=== PATIENT | female | born 1960 | race African-American/Black ===

== ENCOUNTER 2022-01-06 14:40 | Outpatient (CLI) | payer OTHER, SELFPAY ==
--- NOTE | ~2022-01-06 | MM_ITS ---
EXAMINATION: MM screening mark BI w brianda HISTORY: Screening TECHNIQUE: Craniocaudal and mediolateral oblique 3-D tomosynthesis images were obtained and synthetic 2-D images were generated. CAD analysis was submitted and interpreted. COMPARISON: Comparison to multiple prior studies sequentially, with oldest reviewed study dated 06/28. BREAST PARENCHYMAL COMPOSITION: Breast composed of scattered areas of fibroglandular density FINDINGS: There are developing clusters of breast calcifications in the upper outer and upper central right breast posteriorly and the lower inner quadrant of the left breast as well as the upper aspect of the left breast on MLO view. IMPRESSION: 1. Developing bilateral clusters of breast calcifications. 2. Additional mammographic views including left exaggerated CC view and possible breast ultrasound ar e recommended. BI-RADS CATEGORY 0 - INCOMPLETE STUDY, NEED ADDITIONAL IMAGING EVALUATION. Reviewed, dictated and finalized at location A. IMPRESSION: 1. Developing bilateral clusters of breast calcifications. 2. Additional mammographic views including left exaggerated CC view and possibl e breast ultrasound are recommended. BI-RADS CATEGORY 0 - INCOMPLETE STUDY, NEED ADDITIONAL IMAGING EVALUATION.
== END 2022-01-06 14:41 | disposition home or self-care (01) ==
LOC: ANHIMG 14:43
DX: Z12.31 Encounter for screening mammogram for malignant neoplasm of breast (principal); R92.8 Other abnormal and inconclusive findings on diagnostic imaging of breast
CPT/HCPCS: 77063; 77067

== ENCOUNTER 2022-10-19 12:58 | Outpatient (CLI) | payer MEDICARE, SELFPAY ==
--- NOTE | ~2022-10-19 | US_ITS ---
EXAMINATION: US renal BI DATE: 10/19/2022 13:51 INDICATION: Chronic kidney disease TECHNIQUE: Multiple grayscale and Doppler ultrasound images of the kidneys were obtained. COMPARISON: None. FINDINGS: The right kidney measures 9.8 x 4.6 x 5.1 cm. The left kidney measures 10.4 x 6.3 x 7.1 cm. The kidneys demonstrate increased parenchymal echogenicity. There is no hydronephrosis. The bladder is incompletely distended but demonstrates mild wall thickening. IMPRESSION: 1. Medical renal disease. 2. Mild wall thickening of the urinary bladder which could reflect incomplete distention versus cysti tis. Reviewed, dictated and finalized at location L. [employer]ICATION[employer] IMPRESSION: 1. Medical renal disease. 2. Mild wall thickening of the urinary bladder which could reflect incomplete d istention versus cystitis.
== END 2022-10-19 12:59 | disposition home or self-care (01) ==
PROVIDERS: Visit Provider Internal Medicine Nephrology
DX: N18.9 Chronic kidney disease, unspecified (principal); R93.41 Abnormal radiologic findings on diagnostic imaging of renal pelvis, ureter, or bladder
CPT/HCPCS: 76775

== ENCOUNTER 2025-01-29 02:27 | Day surgery (SDC) | payer MEDICARE, SELFPAY ==
[2025-01-20 13:01] VITALS: BMI 27.3
--- OUTSIDE RECORDS SUMMARY | 2025-01-29 02:30 | XMS_ITS | Clinical Summary ---
Author Organization [facility] [address] [place] [address] Care Team Providers Care Overcaster Name Role Phone Reid Brown MD Unavailable [phone] Refugio Bullock MD Unavailable [phone] Robel Krueger MD Primary Care Provider [phone] Allergies No known active allergies Medications loratadine (CLARITIN) 10 mg tablet Take 1 tablet (10 mg total) by mouth daily as needed for allergies Active pen needle, diabetic 31 gauge x 5/16 needle Use to inject once a week as directed. 30 each 05/24/20 22 Active atenoloL (TENORMIN) 50 mg tablet Take 1 tablet by mouth once daily 90 tablet 04/03/20 23 Active losartan (COZAAR) 50 mg tablet Take 1 tablet (50 mg total) by mouth daily Active glimepiride (AMARYL) 4 mg tablet TAKE 1 TABLET BY MOUTH TWICE DAILY WITH MEALS 180 tablet 3 05/05/20 24 Active linaGLIPtin (Tradjenta) 5 mg tablet Take 1 tablet by mouth once daily 90 tablet 3 05/05/20 24 Active cyanocobalamin, vitamin B-12, (VITAMIN B-12 ORAL) Take by mouth Active dapagliflozin propanediol (Farxiga) 5 mg tabletIndicatio ns:Chronic Kidney Disease,type 2 diabetes mellitus Take 1 tablet (5 mg total) by mouth daily 30 tablet 3 11/15/19 25 Active atorvastatin (LIPITOR) 40 mg tablet Take 1 tablet by mouth once daily 90 tablet 3 12/09/19 Active dulaglutide (Trulicity) 4.5 mg/0.5 mL pen injectorIndicat ions:Dyslipidem ia associated with type 2 diabetes mellitus (HCC) INJECT 4.5 MG SUBCUTANEOUSLY ONCE A WEEK 4 mL 3 12/09/19 25 Active Active Problems Problem Noted Date Diagnosed Date Establishing care with new doctor, encounter for 04/01/2024 Assessment & Plan (04/01/2024 2:45 PM CDT): A(n) initial vist to establish care has been performed today. Karolyn Pandya is not up to date on screening tests. She is in need of Breast cancer screening, hep B, Colon cancer screening, Cholesterol screening, and Cervical cancer screening. She is not up to date on needed preventative vaccinations; She is in need of Zoster. We discussed healthy lifestyle habits, educational material has been given. Medications reviewed, changes documented as per the medical record and discussed with patient along with risks vs benefits. Return in 6 months Hypertension associated with type 2 diabetes sanaz litus 08/28/2023 Hypertensive renal disease 08/28/2022 Type II or unspecified type diabetes mellitus with renal manifestations, uncontrolled(250.42) 08/28/2022 Encounter for Medicare annual wellness exam 05/08 Assessment & Plan (05/28/2022 9:44 PM CDT): Health Maintenance Topics with due status: Overdue Topic Date Due Cervical Cancer Screening-Pap and HPV Never done Colon Cancer Screening-Colonoscopy Never done Zoster Vaccines Never done Dilated Eye Exam 12/20/2021 Covid-19 Vaccine 12/22/2021 Health Maintenance Topics with due status: Not Due Topic Last Completion Date DTaP/Tdap/Td Vaccine 12/20/2017 Influenza Vaccine 08/24/2021 Breast Cancer Screening-Mammogram 01/06/2022 Lipid Panel 04/18/2022 Hemoglobin A1C 04/18/2022 Urine Microalbumin 04/18/2022 Depression Screening-PHQ 05/24/2022 Regular Well Visit/Exam 18-64 05/24/2022 Foot Exam 05/24/2022 Health Maintenance Topics with due status: Completed Topic Last Completion Date Hepatitis C Screening 04/14/2020 Pneumococcal vaccine <65 05/24/2022 Medications were reviewed. Patient will sign a consent so we can get the records for her eye exam. Fall precautions discussed with patient. Patient states she will make an appointment to see the GI specialist close to home for her colonoscopy. Elevated liver function tests 05/24/2022 Assessment & Plan (05/28/2022 9:43 PM CDT): Patient's LFTs were also elevated. Will recheck them. Anemia 04/29/2019 Assessment & Plan (12/25/2021 11:41 AM CDT): Will continue to monitor. Assessment & Plan (01/21/2021 12:17 PM CDT): Patient has not had colon cancer screening. H&H has been well controlled. Patient also does have chronic kidney disease. Patient states she is waiting till she is able to go on Medicare which will be in March of this year to make appointments to see specialist. Assessment & Plan (06/09/2020 12:54 PM CDT): Labs were discussed with patient. Patient was advised to restart on iron tablet 1 a day. Assessment & Plan (11/10/2019 3:15 PM ASSISTANT PROFESSOR): At the present time patient has not been taking any iron pills. Will continue to monitor Assessment & Plan (04/29/2019 12:33 PM CDT): Will recheck her labs. At the present time patient is not taking iron tablets. Patient has been taking B12 is she is on metformin. Colon cancer screening 01/08/2019 Assessment & Plan (12/31/2022 11:41 PM CDT): Patient states she will make appointment to see GI for colonoscopy. Assessment & Plan (06/06/2021 12:36 PM CDT): Patient states she is planning to get the colonoscopy as soon as she gets her insurance straightened out. Assessment & Plan (06/09/2020 12:53 PM CDT): Patient was agreeable to have Cologuard test done. Patient states she does have the test kit at home and will send that in. Assessment & Plan (11/10/2019 3:14 PM ASSISTANT PROFESSOR): Patient states she did do her Cologuard and sent it in recently Assessment & Plan (04/29/2019 12:31 PM CDT): Patient does not want to have colonoscopy. Discussed with patient she does have anemia and I would strongly advise her to get a colonoscopy and possible EGD. Patient states she will have the think about it. Caloguard test was reordered for her . Advised patient if she does not get the kit in the mail in 2 weeks to call Assessment & Plan (01/08/2019 3:12 PM CDT): Colon cancer screening was discussed with patient. Patient does not want to have colonoscopy. States there is no family history of colon cancer. Patient is agreeable to have the Cologuard test done. Order was sent Vitamin D deficiency 01/08/2019 Assessment & Plan (12/31/2022 11:40 PM CDT): At the present time patient is not taking any vitamin-D. Will continue to monitor. Assessment & Plan (05/28/2022 9:41 PM CDT): She will continue with the same dose of vitamin D3. Assessment & Plan (12/25/2021 11:41 AM CDT): At the present time not taking any vitamin D. Will continue to monitor her labs. Assessment & Plan (06/06/2021 12:36 PM CDT): Will check her vitamin-D levels with the blood work. Assessment & Plan (01/21/2021 12:16 PM CDT): Patient at the present time has been taking vitamin D3 2000 units a day. Was advised to increase that to 5000 units a day. Assessment & Plan (10/03/2020 5:50 PM ASSISTANT PROFESSOR): Patient has been taking vitamin D 50,000 once a week. Will continue to monitor Assessment & Plan (06/09/2020 12:53 PM CDT): Patient's vitamin-D levels were high. Was advised to stop taking her vitamin D 50,000 once a week for now. Will continue to monitor. Assessment & Plan (11/10/2019 3:15 PM ASSISTANT PROFESSOR): Patient has been taking vitamin D 79615 units once a week. Assessment & Plan (04/29/2019 12:32 PM CDT): Patient has been taking vitamin D 37872 IU use once a week. With her next blood work will also check her vitamin-D levels. Assessment & Plan (01/08/2019 3:13 PM CDT): Patient's blood work does show her vitamin-D level was very low. Was given prescription to take vitamin D 70644 units once a week. Will recheck it in few months. 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 Patient also did not send in the Cologuard testing. Patient states that the present time she does not want to do any testing. Assessment & Plan (06/09/2020 12:52 PM CDT): Patient does not want to have colonoscopy done. Patient does have iron deficiency anemia. Patient is aware if she has colon polyps it can turn into cancer. Next Assessment & Plan (12/20/2017 5:55 PM CDT): Colon cancer screening was discussed with patient. Patient does not want to have the colonoscopy done. Patient did have guaiac test done in April of 2017. Patient states she will consider getting that done again after April. Stage 3b chronic kidney disease 08/28/2017 Assessment & Plan (12/31/2022 11:41 PM CDT): Blood pressure was well controlled. At the present time continue with the same medications Assessment & Plan (05/28/2022 9:41 PM CDT): Blood pressure was well controlled. At the present time continue with the same medications. Assessment & Plan (12/25/2021 11:40 AM CDT): Patient's blood pressure has been well controlled. At the present time she has been taking Tenormin 50 mg daily. And Diovan 80 mg daily. She will continue with the same dose. Assessment & Plan (06/06/2021 12:37 PM CDT): Patient's blood pressure has been well controlled. At the present time she has been taking Tenormin 50 mg daily. And Diovan 80 mg on a daily basis. Continue with the same. Assessment & Plan (01/21/2021 12:16 PM CDT): Blood pressure has been well controlled. At the present time patient has been taking Tenormin 50 mg 1 daily. Taking Diovan 80 mg on a daily basis. At the present time she will continue with the same. Assessment & Plan (10/03/2020 5:52 PM ASSISTANT PROFESSOR): Blood pressure has been well controlled. At the present time she has been taking Tenormin 50 mg daily. And Diovan 80 mg daily. She will continue with the same Assessment & Plan (06/09/2020 12:52 PM CDT): Blood pressure was well controlled. At the present time patient has been taking Tenormin 50 mg on a daily basis. Hydrochlorothiazide 12.5 mg daily. And Diovan 80 mg on a daily basis. She will continue with the same. Assessment & Plan (11/10/2019 3:14 PM ASSISTANT PROFESSOR): Blood pressure has been well controlled. At the present time patient has been taking Diovan 80 mg on a daily basis. Atenolol 50 mg on a daily basis and hydrochlorothiazide 12.5 mg daily. Assessment & Plan (04/29/2019 12:30 PM CDT): Patient's blood pressure has been well controlled. At the present time patient has been taking Hyzaar 100/12.5 mg 1 daily. She has also been taking Tenormin 50 mg on a daily basis. Patient will continue with the same. Assessment & Plan (01/08/2019 3:08 PM CDT): Patient's blood pressure has been well controlled. At the present time patient has been taking Hyzaar 100/12.5 mg 1 daily. She has also been taking at Tenormin 50 mg on a daily basis. Continue with the same dose. Assessment & Plan (11/15/2018 1:57 PM ASSISTANT PROFESSOR): Patient's blood pressure has been well controlled. At the present time patient has been taking Tenormin 50 mg 1 daily. Patient has also been taking Hyzaar 100/12.5 mg on a daily basis. She will continue with the same dosage. Assessment & Plan (09/18/2018 10:13 AM ASSISTANT PROFESSOR): Patient's blood pressure has been well controlled. At the present time she will continue with the same medications. Assessment & Plan (08/22/2018 1:59 PM ASSISTANT PROFESSOR): Patient's blood pressure has been well controlled. At the present time patient has been taking Hyzaar 100/12.5 mg daily and atenolol 50 mg once a day. Assessment & Plan (12/20/2017 5:56 PM CDT): Patient's blood pressure has been well controlled. At the present time she has been taking high Hyzaar 100/12.5 mg 1 daily. She has also been taking atenolol 50 mg 1 daily. At the present time she will continue with the same medications. Assessment & Plan (08/28/2017 6:17 PM ASSISTANT PROFESSOR): Patient's blood pressure has been controlled. At the present time she has been taking atenolol 50 mg 1 daily. she has also been on high Hyzaar 100/12.5 mg daily. She will continue with the same. 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 Assessment & Plan (05/28/2022 9:41 PM CDT): Patient states she has been using her eyedrops as prescribed. She is up-to-date on her eye exam. Assessment & Plan (12/25/2021 11:40 AM CDT): Patient states her vision has not changed. She is up-to-date on her eye exam. Patient will sign a consent so we can get the results. Assessment & Plan (01/21/2021 12:15 PM CDT): Patient does see her eye doctor on a regular basis. Assessment & Plan (06/21/2020 3:22 PM CDT): Has had extensive panretinal photocoagulation in the right eye, the right eye appears to have an attached retinal appearance. Prognosis for the right eye is quite guarded I recommend observation at this time. 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 We discussed possibility of silicone oil removal and repair retinal detachment but considering the poor vision and disorganized appearance I believe that the prognosis for this eye is quite poor. Considering this patient wishes for observation, I think this is quite reasonable, I have asked that she return to see us roughly 3 months time period should all remains stable will see her again in 6 month, and should remain stable at a six-month period will return her to Dr. Bullock's care. Assessment & Plan (06/09/2020 12:50 PM CDT): As per her net trainer and redness specialist. Next Assessment & Plan (11/10/2019 3:13 PM ASSISTANT PROFESSOR): Patient does see net trainer on a regular basis. States she has been using her eyedrops as prescribed. Assessment & Plan (08/22/2018 2:34 PM ASSISTANT PROFESSOR): States her vision is staying about the same. She does see net trainer on a regular basis. Has been using eyedrops. Assessment & Plan (08/28/2017 6:16 PM ASSISTANT PROFESSOR): Patient is up-to-date on her eye exam. She continues to use her eyedrops as prescribed. Assessment & Plan (05/15/2017 11:43 AM CDT): Patient states her vision has not been getting worse. She is up-to-date on her exam with the redness specialist. CKD (chronic kidney disease) stage 3, GFR 30-59 ml/min 05/15/2017 Assessment & Plan (12/31/2022 11:41 PM CDT): Medications were reviewed. Patient was advised to avoid all nonsteroidals. She does see bean sorter now. Assessment & Plan (05/28/2022 9:41 PM CDT): Discussed with patient her kidney test have been progressively been getting worse. Patient has metformin was discontinued. Was advised to make the appointment to see the bean sorter. Also advised patient to avoid all nonsteroidals. Patient's Diovan was also discontinued. Assessment & Plan (12/25/2021 11:40 AM CDT): Advised patient to avoid all nonsteroidals. Discussed with patient she also does need to have an appointment to follow-up with a bean sorter. Assessment & Plan (06/06/2021 12:36 PM CDT): Medications were reviewed. Patient was advised to avoid all nonsteroidals. Will continue to monitor Assessment & Plan (01/21/2021 12:15 PM CDT): Medications were reviewed. Patient was advised to avoid all nonsteroidals. Also discussed with patient that she does need to be seen by bean sorter. Patient states that the present time she wants to wait till March when she changes her insurance. Assessment & Plan (10/03/2020 5:51 PM ASSISTANT PROFESSOR): Medications were reviewed. Patient was advised to avoid all nonsteroidals. Will continue to monitor. Assessment & Plan (06/09/2020 12:51 PM CDT): Labs were discussed with patient. Patient's medications were reviewed. At the present time patient is not taking any nonsteroidals. Patient's creatinine was elevated at 1.74 this time. Will continue to monitor. Patient is on Diovan and hydrochlorothiazide. If her creatinine continues to be high will need to stop the hydrochlorothiazide at least and also change her metformin. Patient at the present time does not want to see bean sorter. Assessment & Plan (11/10/2019 3:13 PM ASSISTANT PROFESSOR): Medications were reviewed. Patient was advised to avoid all nonsteroidals. Will continue to monitor Assessment & Plan (04/29/2019 12:30 PM CDT): Patient's medications were reviewed. Avoid nephrotoxins. Will continue to monitor. Assessment & Plan (01/08/2019 3:09 PM CDT): Patient's recent lab work was discussed with her. Will continue to monitor. Patient was advised to avoid all nonsteroidals. Assessment & Plan (11/15/2018 1:56 PM ASSISTANT PROFESSOR): Will continue to monitor. Patient will avoid nonsteroidals. Assessment & Plan (09/18/2018 10:13 AM ASSISTANT PROFESSOR): Continue to monitor Assessment & Plan (08/22/2018 1:58 PM ASSISTANT PROFESSOR): Patient not taking any nonsteroidals. Does not have any symptoms. Will continue to monitor. Assessment & Plan (12/20/2017 5:56 PM CDT): Will continue to monitor. Patient was given lab slip to have blood work in urine test in the next couple of weeks. Assessment & Plan (08/28/2017 6:16 PM ASSISTANT PROFESSOR): Patient's creatinine was 1.39 this time. GFR was 49. Will continue to monitor. Patient was also advised to avoid all nonsteroidals. Assessment & Plan (05/15/2017 11:41 AM CDT): Patient's blood pressure has been well controlled. At the present time patient has been taking atenolol 50 mg 1 daily. Patient has also been taking high Hyzaar 100/12.5 mg 1 daily. She will continue with the same.. Advanced diabetic retinal disease 04/08/2014 Overview (01/11/2017): Advanced diabetic retinal disease Assessment & Plan (06/06/2021 12:35 PM CDT): As per Retina specialist. Assessment & Plan (10/03/2020 5:50 PM ASSISTANT PROFESSOR): As per her eye doctor's. She has been using her eyedrops as prescribed Assessment & Plan (06/09/2020 12:50 PM CDT): As per her net trainer in the redness specialist. Assessment & Plan (04/29/2019 12:29 PM CDT): Patient has been using her eyedrops and is up-to-date on her eye exam. Glaucoma associated with vascular disorders 11/2013 Overview (01/11/2017): Glaucoma associated with vascular disorder Assessment & Plan (12/31/2022 11:40 PM CDT): States she is up-to-date on her eye exam. Using her eyedrops as prescribed. Assessment & Plan (05/28/2022 9:42 PM CDT): As per her net trainer. Patient states she has been using her eyedrops as prescribed Assessment & Plan (12/25/2021 11:42 AM CDT): As per net trainer. Patient states she has been using her eyedrops as prescribed. Assessment & Plan (06/06/2021 12:35 PM CDT): Patient has been using her eyedrops. Does see her eye doctor on a regular basis Assessment & Plan (06/09/2020 12:50 PM CDT): As per her net trainer. Type 2 diabetes mellitus wit h hyperglycemia, without long-term current use of insulin 07/29/2013 Overview (01/11/2017): HYPERLIPIDEMIA NEC/NOS Assessment & Plan (12/31/2022 11:40 PM CDT): Patient will continue with atorvastatin 40 mg at bedtime. Next Assessment & Plan (05/28/2022 9:42 PM CDT): Patient has been taking Lipitor 40 mg and has been able to tolerate that. She will continue with the same dose Assessment & Plan (12/25/2021 11:41 AM CDT): Patient states she has been taking Lipitor 40 mg daily and has been able to tolerate that. She will continue with the same Assessment & Plan (06/06/2021 12:35 PM CDT): Patient has been taking Lipitor 40 mg on a daily basis and has been able to tolerate that. Assessment & Plan (01/21/2021 12:15 PM CDT): Labs were discussed with patient. Patient's lipids are not at goal. Patient states she had been out of her Lipitor for couple months. She has restarted taking the Lipitor 40 mg daily since her last blood draw. Patient was advised to continue with the same. Advised patient if she is out of refills to give us a call. Will recheck her labs with her next appointment Assessment & Plan (10/03/2020 5:50 PM ASSISTANT PROFESSOR): Patient has been taking Lipitor 40 mg on a daily basis and has been able to tolerate that. Assessment & Plan (06/09/2020 12:48 PM CDT): Patient's labs were discussed with her. Discussed with patient with her history of diabetes her LDL does need to be less than 70. Patient at the present time has been taking pravastatin. With her next refills we will change that to Lipitor 40 mg to take 1 at bedtime. Patient was advised to let me know when she needs the Lipitor. After starting the Lipitor if she has any problems to give us a call. Assessment & Plan (11/10/2019 3:11 PM ASSISTANT PROFESSOR): Patient has been taking pravastatin 80 mg at bedtime. Patient was given blood work sleep to have the fasting blood work in the next few days. Diet and exercise was encouraged. Assessment & Plan (04/29/2019 12:28 PM CDT): Patient was encouraged to get back on her diet. At the present time she has been taking pravastatin 80 mg on a daily basis and has been able to tolerate that. Patient was given lab slip to have fasting blood work and of next month. Assessment & Plan (01/08/2019 3:10 PM CDT): Labs discussed with patient. Patient has been taking pravastatin 80 mg daily. Patient will continue with the same dose. Assessment & Plan (11/15/2018 2:02 PM ASSISTANT PROFESSOR): Patient was encouraged to continue with her diet and exercise. At the present time patient has been taking pravastatin 80 mg on a daily basis. She will continue with the same dose. Assessment & Plan (09/18/2018 10:15 AM ASSISTANT PROFESSOR): Diet and exercise was discussed with patient. At the present time she has been taking pravastatin 80 mg a day and has been able to tolerate that. Assessment & Plan (08/22/2018 2:00 PM ASSISTANT PROFESSOR): Advised to continue with diet and exercise. At the present time patient has been taking pravastatin 80 mg on a daily basis. Patient states she will have her fasting blood work done in the next few weeks. Assessment & Plan (12/20/2017 5:57 PM CDT): Diet and exercise was discussed with patient. Patient has been taking pravastatin 80 mg daily and she has been able to tolerate that. Patient was given lab slip to have fasting blood work in the next couple of weeks. Will check her fasting lipids and CMP. Assessment & Plan (08/28/2017 6:14 PM ASSISTANT PROFESSOR): Labs were discussed with patient. Her LDL was 72. At the present time patient will continue with her pravastatin 80 mg daily. Was also advised to continue with her diet and exercise. Assessment & Plan (05/15/2017 11:42 AM CDT): Patient's last LDL was 73. At the present time she has been taking pravastatin 80 mg daily. She will continue with the same. Patient will also have a fasting lipids and CMP with her next blood work. Diet and exercise Uterine leiomyoma 02/04/2013 Overview (01/11/2017): Uterine fibroid Assessment & Plan (01/08/2019 3:13 PM CDT): Patient does have mobile mass. Patient states it has not been bothering her and therefore does not feel she needs to see montessori preschool teacher at this time. Heart murmur 01/01/2013 Overview (01/10/2017): Heart murmur Assessment & Plan (08/22/2018 1:59 PM ASSISTANT PROFESSOR): Patient will be scheduled to have 2D echocardiogram to rule out valvular heart disease. Resolved Problems Problem Noted Date Diagnosed Date Resolved Date Breast cancer screening by mammogram 11/10/2019 05/24/2022 Assessment & Plan (12/25/2021 11:41 AM CDT): Does have appointment to have a mammogram in the next few weeks. Assessment & Plan (06/06/2021 12:36 PM CDT): Patient was given orders for the mammogram. Patient states she will get it close to her home. Assessment & Plan (01/21/2021 12:17 PM CDT): Patient wants to week till March to have the mammogram. Assessment & Plan (06/09/2020 12:55 PM CDT): Patient states she will make her own appointment for the mammogram. Assessment & Plan (11/10/2019 3:16 PM ASSISTANT PROFESSOR): Patient states she will make her own appointment for the mammogram. Refused influenza vaccine 11/10/2019 Assessment & Plan (11/10/2019 3:16 PM ASSISTANT PROFESSOR): Patient was offered flu shot and she declined. Next BMI 26.0-26.9,adult 04/29/2019 01/22/20 21 Assessment & Plan (06/09/2020 12:53 PM CDT): Diet exercise and weight loss was encouraged. Assessment & Plan (11/10/2019 3:15 PM ASSISTANT PROFESSOR): Patient was counseled on diet exercise. Assessment & Plan (04/29/2019 12:35 PM CDT): Patient was counseled on diet exercise and weight loss. Pre-op examination 11/15/2018 9 Assessment & Plan (11/15/2018 1:58 PM ASSISTANT PROFESSOR): Patient is scheduled to have surgery on her left eye next week. Patient's EKG was normal. Patient is cleared for surgery. Patient was advised to hold her diabetes medicine morning of the surgery. However she can take Tenormin 50 mg with a sip of water in the morning. Will make sure patient's labs are okay. Breast cancer screening 05/15/2017/2 10/2016 Assessment & Plan (05/15/2017 11:45 AM CDT): Patient will make appointment for the mammogram Type 2 diabetes mellitus wit h hyperlipidemia ([facility]) 02/04/2013 08/28/2023 Overview (01/11/2017): DMII WO CMP UNCNTRLD Assessment & Plan (12/31/2022 11:40 PM CDT): Patient's blood work was reviewed. Hemoglobin A1c was 8.8. Discussed with patient would like to see that under 7.0. At the present time patient has been taking Trulicity 1.5 mg once a week. Discussed with patient with her next refill I will change that to 3.0 mg once a week. She has been taking glimepiride 4 mg twice a day. Patient is also taking Tradjenta 5 mg on a daily basis. Patient's metformin was discontinued. Symptoms of hypoglycemia was discussed. Patient will sign a consent so we can get her eye exam. Assessment & Plan (05/28/2022 9:43 PM CDT): Patient's diabetes is not well controlled. Her hemoglobin A1c this time was 10.0. Patient has been taking Tradjenta 5 mg daily. Taking glimepiride 4 mg twice a day. Metformin was discontinued because of her elevated creatinine. Discussed with patient to start on Trulicity. Patient states she will try. Will continue to monitor. Assessment & Plan (12/25/2021 11:42 AM CDT): At the present time patient has been taking glimepiride 4 mg 1 tablet before breakfast and 1 before evening meal. She has also been taking metformin 500 mg 1 twice a day with food and has also been taking Jardiance 5 mg on a daily basis. Will continue to monitor her hemoglobin A1c. Assessment & Plan (06/06/2021 12:34 PM CDT): Patient has not been checking blood sugars at home. She has been taking her medications as prescribed. Patient states she will get her blood work done in the next few days. At the present time she has been taking glimepiride 2 mg 1 twice a day with food. Also taking Tradjenta 5 mg on a daily basis. Taking metformin 500 mg 1 twice a day with food. Assessment & Plan (01/21/2021 12:14 PM CDT): Patient has not been checking blood sugars at home. Patient states she has not been having any symptoms of hypoglycemia. Has been trying to watch her diet. Lab work was discussed with patient. Her hemoglobin A1c has improved. Patient at the present time has been taking Tradjenta 5 mg daily. Taking glimepiride 4 mg 1 twice a day. Taking metformin 500 mg 1 twice a day with food. Patient at the present time will continue with the same. Discussed with patient if her kidney test continues to get worse we will need to take her off the metformin. Assessment & Plan (10/03/2020 5:50 PM ASSISTANT PROFESSOR): Patient has not been checking blood sugars at home. States she has been trying to do better with her diet. At the present time patient has been taking metformin 500 mg 1 tablet twice a day with food. Taking glimepiride 2 mg twice a day with meals and has also been taking Tradjenta 5 mg on a daily basis. Patient will have blood work done in October including her hemoglobin A1c. Assessment & Plan (06/09/2020 12:52 PM CDT): Patient has not been able to check her blood sugars at home because of her vision issues. Patient states diet has not been good. Has not been exercising either. Patient's hemoglobin A1c was elevated at 8.4 today. Patient at the present time has been taking Glucophage 500 mg 2 tablets twice a day with food. She has also been taking glimepiride 2 mg 2 tablets twice a day with food. Discussed with patient would like to have her hemoglobin A1c to be less than 7.0. Tradjenta 5 mg 1 a day was added. Will check her labs again in 3 months. Assessment & Plan (11/10/2019 3:12 PM ASSISTANT PROFESSOR): Patient states she has not been checking blood sugars at home because of her vision problems. Patient states she cannot see enough to do the Accu-Chek. Has not had any symptoms of hypoglycemia. At the present time patient has been taking glimepiride 4 mg before breakfast and 4 mg before evening meals. Patient has also been taking metformin XR 500 mg 2 tablets twice a day. At the present time she will continue with the same dose. Will also check her hemoglobin A1c. Patient states she is up-to-date on her eye exam. Will have her sign a consent so I can get the notes on her eye exam. Assessment & Plan (04/29/2019 12:34 PM CDT): Patient states she cannot check her blood sugars because of her vision. Has not been having any symptoms of hypoglycemia. At the present time patient has been taking glimepiride 2 mg 1 tablet twice a day before breakfast any evening. She has also been taking metformin 500 mg 2 tablets twice a day with food. Patient has been able to tolerated. Assessment & Plan (01/08/2019 3:10 PM CDT): Patient's diabetes has improved. Her last hemoglobin A1c was 6.2. Diet and exercise was encouraged. At the present time patient has been taking glimepiride 2 mg 2 tablets twice a day before food. Also taking metformin XR 500 mg 2 tablets twice a day with food. Symptoms of hypoglycemia was discussed with her. Patient is up-to-date on her eye exam. Assessment & Plan (11/15/2018 1:56 PM ASSISTANT PROFESSOR): Patient states she has not been checking her blood sugars at home. Has not been able to see the numbers on the Accu-Chek machines. Patient has not had any hypoglycemic reactions. At the present time patient has been taking glimepiride 2 mg 2 tablets before breakfast and 2 before evening meal. Patient is also taking metformin XR 500 mg 2 tablets twice a day with food. At the present time patient will continue with the same dosage. Assessment & Plan (09/18/2018 10:14 AM ASSISTANT PROFESSOR): Patient states she has not been able to check her blood sugars at home because of her vision problem. She has been taking her medications as prescribed. Lab results were discussed with her. Her hemoglobin A1c with the last blood work was 9.0 which is much higher than the 1 before. Patient states she has been taking her medications but has not been watching her diet. Wants to try the diet 1st before adding any more medications. Assessment & Plan (08/22/2018 2:35 PM ASSISTANT PROFESSOR): Patient states she has been doing much better with her diet. Has been taking her medications as prescribed. Has not been able to check blood sugars at home because of her vision problems. Patient's last hemoglobin A1c was 9.0. Patient's diabetes is not well controlled. Patient states she did not get her blood work this time but we will have the blood work done in the next few weeks. Will wait for the results to see if we can adjust her medications if her diabetes is still out of control. Assessment & Plan (12/20/2017 5:59 PM CDT): Patient was encouraged to check her blood sugars at home at least 3 to 4 times a week and bring her readings with her next appointment. Patient states her pharmacy does not have the glimepiride 4 mg and it is on back order, And they have requested to have the prescription for glimepiride 2 mg to take 2 tablets twice a day. Patient is up-to-date on her eye exam. Patient is also taking metformin XR 500 mg 2 tablets twice a day with food. Diet and exercise was encouraged. If patient's kidney test are getting worse will need to adjust the dose of metformin. Assessment & Plan (08/28/2017 6:15 PM ASSISTANT PROFESSOR): Patient was encouraged to check her blood sugars at home. She has not been having any symptoms of hypoglycemia. At the present time patient has been taking glimepiride 4 mg 1 tablet twice a day with food. Patient is also taking metformin 500 mg 2 tablets twice a day with food and has been able to tolerate that. Patient's creatinine was 1.39 this time in her GFR was 49. Will continue to monitor. If her kidney test gets worse will need to take her off the metformin. Patient was also advised to avoid all nonsteroidals. Assessment & Plan (05/15/2017 11:43 AM CDT): Patient was encouraged to check her blood sugars at home 2 to 3 times a week. She is up-to-date on her eye exam. At the present time patient has been taking metformin 500 mg 2 tablets twice a day with food. And glimepiride 4 mg 1 twice a day. Patient's last hemoglobin A1c was 6.9. At the present time she will continue with the same. Patient was given lab slip to have fasting blood work few days before Encounters Date Type Department Care Team Description 01/14/2025 2:34 PM CDT - 01/14/2025 11:59 PM CDT Hospital Encounter [address] [id number] Chronic kidney disease (CKD) stage G3b/A3, moderately decreased glomerular filtration rate (GFR) between 30-44 mL/min/1.73 square meter and albuminuria creatinine ratio greater than 300 mg/g (HCC) Discharge Disposition: Discharge to home or self care 01/14/2025 2:30 PM CDT Lab [facility] Out[facility] Lab at [address] [id number] Chronic kidney disease (CKD) stage G3b/A3, moderately decreased glomerular filtration rate (GFR) between 30-44 mL/min/1.73 square meter and albuminuria creatinine ratio greater than 300 mg/g (HCC) (Primary Dx); CKD (chronic kidney disease) stage 3, GFR 30-59 ml/min (HCC) 12/10/2024 Telephone [facility] Accountable Care Organization [address] [place] [id number] [address] [place] Successful Phone Call (Med adherence) 11/15/2024 Orders Only [facility] Primary Care at [address] [address] Robel Krueger MD 11/13/2024 10:45 AM ASSISTANT PROFESSOR Lab [facility] Out[facility] Lab at [address] [address] Hypertension associated with type 2 diabetes mellitus (HCC) (Primary Dx) 11/13/2024 10:36 AM ASSISTANT PROFESSOR - 11/13/2024 11:59 PM ASSISTANT PROFESSOR Hospital Encounter [address] [id number] Hypertension associated with type 2 diabetes mellitus (HCC); Dyslipidemia associated with type 2 diabetes mellitus (HCC); Stage 3b chronic kidney disease (HCC) Discharge Disposition: Discharge to home or self care 11/13/2024 9:45 AM ASSISTANT PROFESSOR Office Visit [facility] at [address] [phone] Robel Krueger MD Hypertension associated with type 2 diabetes mellitus (HCC) (Primary Dx); Dyslipidemia associated with type 2 diabetes mellitus (HCC); Stage 3b chronic kidney disease (HCC); 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 (HCC); Screening for colon cancer; Breast cancer screening by mammogram from Last 3 Months Immunizations Immunization Administration Dates Next Due DTP 01/19/2007 Influenza, Quadrivalent, Hig h Dose, Preservative Free, Intrr 07/17/2022 Influenza, Quadrivalent, Spl it, Intramuscular 09/21/2016 Influenza, Quadrivalent, Spl it, Preservative Free, Intramuscular 08/09/2023,07/17/2022,08/24/2021,06/23,12/08/2019,07/16/2018,08/28/2017 Influenza, Split 07/29/2013 Influenza, Trivalent, IM (MDV) 08/20/2015,2013,07/29/2013 Pfizer SARS-CoV-2 Monovalent Vaccination (12+ Yrs) PURPLE 08/24/2021,01/16/2021,12/24/2020 Pfizer Sars-Cov-2 Bivalent V accination (12+ YRS) 07/17/2022 Pneumococcal Conjugate Pcv20 05/24/2022 Pneumococcal Polysaccharide PPV23 02/04/2013 Tdap 12/20/2017 Surgical History Surgery Date Site/Laterality Comments SECTION 10/08/1982 - 10/07/1983 section OTHER SURGICAL HISTORY rt eye sx with shunt CATARACT EXTRACTION Right Cataract extraction CATARACT EXTRACTION Left Cataract extraction BREAST BIOPSY Left breast bx EYE SURGERY 04/04/2018 Left EYE SURGERY 11/08/2018 - 12/05/2018 Left EYE SURGERY 03/19/2020 Left laser to remove scar tissue RETINAL DETACHMENT SURGERY CATARACT EXTRACTION IRIDOTOMY / IRIDECTOMY Medical History Medical History Date Comments Hx Other Medical 02/2014 laser surg eyes ; Comments: CAB 04/08/2014 -; Laterality: bilateral DM (diabetes mellitus) (HCC) High cholesterol Hypertension Macular degeneration Glaucoma Family History Medical History Relation Name Comments Other Brother kendy Alive and well; Diabetes Father Diabetes mellit us; sleep Apnea. HTN. Glaucoma Father Macular degeneration Father Diabetes Mother Diabetes mellit us; htn,high chol. Prostate cancer Other Family histo ry of Cancer, prostate; Relation Name Status Comments Brother kendy Alive Father (Age 78) Mother Alive Other Social History Tobacco Use Types Packs/Day Years Used Date Smoking Tobacco: Never Smokeless Tobacco: Never Chew Tobacco Cessation:Counseling Given: Not Answered Alcohol Use Standard Drinks/Week Comments No 0 (1 standard drink = 0.6 oz pur e alcohol) PHQ-2 Answer Date Recorded PHQ-2 Total Score (If total score is 3 or more points, staff should administer the PHQ-9) 0 11/13/2024 Comments No Sex and Gender Information Value Date Recorded Sex Assigned at Not on file Legal Sex Female 2:48 AM ASSISTANT PROFESSOR Gender Identity Not on file Sexual Orientation Not on file Occupation Industry Job Start Date Job End Date homemaker Not on file Not on file Not on file Obstetrics History Last Filed Vital Signs Vital Sign Reading Time Taken Comments Blood Pressure 136/80 11/13/2024 9:59 AM ASSISTANT PROFESSOR Pulse 76 11/13/2024 9:59 AM ASSISTANT PROFESSOR Temperature 36 C (96.8 F) 11/13/2024 9:59 AM ASSISTANT PROFESSOR Respiratory Rate 16 11/13/2024 9:59 AM ASSISTANT PROFESSOR Oxygen Saturation 98% 11/13/2024 9:59 AM ASSISTANT PROFESSOR Inhaled Oxygen Concentration - - Weight 71.2 kg (157 lb) 11/13/2024 9:59 AM ASSISTANT PROFESSOR Height 162.6 cm (5' 4 ) 11/13/2024 9:59 AM ASSISTANT PROFESSOR Body Mass Index 26.95 11/13/2024 9:59 AM ASSISTANT PROFESSOR Plan of Treatment Health Maintenance Due Date Last Done Comments Cervical Cancer Screening 1962 Colon Cancer Screening-Colonoscopy 1962 Hepatitis B Screening 1980 Breast Cancer Screening-Mammogram 01/06/2023 01/06/2022, 07/10/2018, 06/28/2017 Covid-19 Vaccine ( season) 2024 08/09/2023, 07/17/2022, 08/24/2021, Additional history exists Albumin Creatinine Ratio, Urine 03/07/2025 03/07/2024, 10/27/2022, 04/18/2022, Additional history exists Regular Well Visit/Exam 18-64 03/07/2025 03/07/2024, 05/24/2022, 04/16/2020 Dilated Eye Exam 04/30/2025 04/30/2023, , 06/23/2019, Additional history exists Hemoglobin A1C 05/13/2025 11/13/2024, 07/08, 04/01/2024, Additional history exists Influenza Vaccine (Season Ended) 2025 08/09/2023, 07/17/2022, 07/17/2022, Additional history exists Zoster Vaccine (1 of 2) 07/23/2025 Post poned from 2012 (Insurance / Financial) Depression Screening 11/13/2025 11/13/2024, 04/01/2024, 03/07/2024, Additional history exists Foot Exam 11/13/2025 11/13/2024, 08/09, 05/24/2022, Additional history exists Lipid Panel 11/13/2025 11/13/2024, 01/07, 10/27/2022, Additional history exists eGFR 01/14/2026 01/14/2025, 03/2025, 07/09/2024, Additional history exists DTaP/Tdap/Td Vaccine (3 - Td or Tdap) 12/21/2027 12/20/2017, 01/19/2007 Colon Cancer Screening-FIT Discontinued 04/12/2017 Hepatitis C Screening Completed 04/14/2020 Pneumococcal vaccine <65 Completed 05/24/2022, 01/08 Procedures Procedure Name Priority Date/Time Associated Diagnosis Comments EGFR Routine 01/14/2025 2:34 PM CDT Chronic kidney disease (CKD) stage G3b/A3, moderately decreased glomerular filtration rate (GFR) between 30-44 mL/min/1.73 square meter and albuminuria creatinine ratio greater than 300 mg/g (HCC) DIFFERENTIAL AUTO Routine 01/14/2025 2:3 4 PM CDT Chronic kidney disease (CKD) stage G3b/A3, moderately decreased glomerular filtration rate (GFR) between 30-44 mL/min/1.73 square meter and albuminuria creatinine ratio greater than 300 mg/g (HCC) RENAL FUNCTION PANEL Routine 01/14/2025 2:34 PM CDT Chronic kidney disease (CKD) stage G3b/A3, moderately decreased glomerular filtration rate (GFR) between 30-44 mL/min/1.73 square meter and albuminuria creatinine ratio greater than 300 mg/g (HCC) PTH Routine 01/14/2025 2:34 PM CDT Chronic kidney disease (CKD) stage G3b/A3, moderately decreased glomerular filtration rate (GFR) between 30-44 mL/min/1.73 square meter and albuminuria creatinine ratio greater than 300 mg/g (HCC) CBC WITH AUTO DIFFERENTIAL Routine 01/14/2025 2:34 PM CDT Chronic kidney disease (CKD) stage G3b/A3, moderately decreased glomerular filtration rate (GFR) between 30-44 mL/min/1.73 square meter and albuminuria creatinine ratio greater than 300 mg/g (HCC) EGFR Routine 11/13/2024 10:36 AM ASSISTANT PROFESSOR Hypertension associated with type 2 diabetes mellitus (HCC) Stage 3b chronic kidney disease (HCC) DIFFERENTIAL AUTO Routine 11/13/2024 10: 36 AM ASSISTANT PROFESSOR Hypertension associated with type 2 diabetes mellitus (HCC) CBC WITH AUTO DIFFERENTIAL Routine 11/13/2024 10:36 AM ASSISTANT PROFESSOR Hypertension associated with type 2 diabetes mellitus (HCC) COMPREHENSIVE METABOLIC PANEL Routine 11/13/2024 10:36 AM ASSISTANT PROFESSOR Hypertension associated with type 2 diabetes mellitus (HCC) Stage 3b chronic kidney disease (HCC) LIPID PANEL Routine 11/13/2024 10:36 AM ASSISTANT PROFESSOR Dyslipidemia associated with type 2 diabetes mellitus (HCC) HEMOGLOBIN A1C Routine 11/13/2024 10:36 AM ASSISTANT PROFESSOR Hypertension associated with type 2 diabetes mellitus (HCC) Dyslipidemia associated with type 2 diabetes mellitus (HCC) ALBUMIN CREATININE RATIO, URINE Routine 03/07/2024 1:09 PM CDT Benign hypertension with CKD (chronic kidney disease) stage III (HCC) HM DIABETES EYE EXAM Routine 04/30/2023 MAMMOGRAPHY Schedule Routine, Read Routine (OP Routine) 01/06/2022 HEPATITIS C ANTIBODY Routine 04/14/2020 10:05 AM CDT Anemia, unspecified type OCCULT BLOOD, FECAL (FIT) Routine 04/12/2017 12:00 AM CDT from Last 3 Months or Most Recently Relevant to Health Maintenance Results * (ABNORMAL) eGFR (01/14/2025 2:34 PM CDT) eGFR 33(L) >=60 mL/min/1. 73 m2 Comment: Interpretive Data Reference Interval Normal >/= 90 mL/min/1.73m2 Mildly decreased* 60 - 89 mL/min/1.73m2 Mildly to moderately decreased 45 - 59 mL/min/1.73m2 Moderately to severely decreased 30 - 44 mL/min/1.73m2 Severely decreased 15 - 29 mL/min/1.73m2 Kidney Failure < 15 mL/min/1.73m2 *Relative to young adult level Estimated glomerular filtration rate is determined by the 2020 CKD-EPI equation recommended by the National Kidney Foundation (A Unifying Approach to GFR Estimation: Recommendations of the NKF-ASK Task Force on Reassessing the Inclusion of Race in Diagnosing Kidney Disease, JASN 2020). The CKD-EPI equation should not be used for patients with unstable renal function and has not been validated in children and those over 70. Current interpretive data was last reviewed 2021. Blood 01/14/2025 2:34 PM CDT 01/14/2025 8:36 PM CDT us Oziel Camp [facility] LAB BLOOD ORDERABLES Final R esult [facility] [id number] [address] [place] [address] * Differential, auto (01/14/2025 2:34 PM CDT) Neutrophil abs 2.84 1.50 - 6.50 K/cumm Imm gran abs 0.01 0.00 - 0.10 K/cumm [facility] Lymphocyte abs 3.11 0.80 - 3.30 K/cumm [facility] CH Monocyte abs 0.48 0.20 - 0.80 K/cumm [facility] CH Eosinophil abs 0.12 0.00 - 0.50 K/cumm [facility] CH Basophil abs 0.05 0.00 - 0.10 K/cumm C[facility] Neutrophil pct 42.9 % [facility]ER Comment: Interpretive Data Percent cell count reference ranges are not reported, since discordance with absolute values may lead to misinterpretation of CBC data. Current Interpretive Data was last revised on 2018. Imm gran pct 0.2 % C[facility]ER Comment: Interpretive Data Percent cell count reference ranges are not reported, since discordance with absolute values may lead to misinterpretation of CBC data. Current Interpretive Data was last revised on 2018. Lymphocyte pct 47.0 % C[facility]ER Comment: Interpretive Data Percent cell count reference ranges are not reported, since discordance with absolute values may lead to misinterpretation of CBC data. Current Interpretive Data was last revised on 2018. Monocyte pct 7.3 % C[facility]ER Comment: Interpretive Data Percent cell count reference ranges are not reported, since discordance with absolute values may lead to misinterpretation of CBC data. Current Interpretive Data was last revised on 2018. Eosinophil pct 1.8 % CERNER Comment: Interpretive Data Percent cell count reference ranges are not reported, since discordance with absolute values may lead to misinterpretation of CBC data. Current Interpretive Data was last revised on 2018. Basophil pct 0.8 % CERNER Comment: Interpretive Data Percent cell count reference ranges are not reported, since discordance with absolute values may lead to misinterpretation of CBC data. Current Interpretive Data was last revised on 2018. Blood 01/14/2025 2:34 PM CDT 01/14/2025 8:36 PM CDT us Oziel Camp [facility] LAB BLOOD ORDERABLES Final R esult [facility]MENTE [address] [place] [address] * (ABNORMAL) CBC with auto differential (01/14/2025 2:34 PM CDT) WBC 6.61 3.80 - 9.90 K/cumm Hgb 11.5(L) 11.9 - 15.5 g/dL [facility] Hct 36.7 35.6 - 45.5 % [facility] Plt 195 150 - 400 K/cumm [facility] Comment:No clot detected in sample. MPV 13.8(H) 9.1 - 12.3 fL [facility] RBC 3.69(L) 3.90 - 5.20 M/cumm [facility] MCV 99.5(H) 81.3 - 96.4 fL [facility] CH MCH 31.2 27.1 - 33.3 pg C[facility] MCHC 31.3(L) 32.3 - 35.7 g/dL [facility] CH RDW CV 13.8 11.1 - 14.9 % [facility] CH RDW SD 50.5(H) 35.7 - 48.1 fL [facility] NRBC abs 0.00 0.00 - 0.01 K/cumm [facility] Blood 01/14/2025 2:34 PM CDT 01/14/2025 8:36 PM CDT us Oziel Camp [facility] LAB BLOOD ORDERABLES Final R esult [facility]E [facility] [id number] [address] [place] [address] * (ABNORMAL) PTH (01/14/2025 2:34 PM CDT) PTH 134(H) 15 - 65 pg/mL Blood Venous blood specimen / Unknown 01/14/2025 2:34 PM CDT 01/14/2025 8:36 PM CDT Narrative [facility] - 01/14/2025 10:08 PM CDT Fax results to [id number] OZIEL CAMP us Oziel Camp [facility] LAB BLOOD ORDERABLES Final R esult [facility]E [facility] [address] [address] [place] [address] * (ABNORMAL) Renal function panel (01/14/2025 2:34 PM CDT) Sodium 140 135 - 145 mmol/L Potassium, pl 4.6 3.3 - 4.9 mmol/L [facility] Chloride 105 97 - 110 mmol/L [facility] CO2 25 22 - 32 mmol/L [facility] Anion gap 10 2 - 15 mmol/L [facility] BUN 28(H) 6 - 25 mg/dL [facility] Creatinine 1.73(H) 0.60 - 1.10 mg/dL [facility] Glucose 208(H) 70 - 199 mg/dL [facility] Comment: Interpretive Data Fasting glucose >/= 126 mg/dl is diagnostic for diabetes. Fasting is defined as no caloric intake for at least 8 hours. Fasting glucose between 100 mg/dl to 125 mg/dl is diagnostic of prediabetes. In a patient with classic symptoms of hyperglycemia or hyperglycemic crisis, a random glucose >/= 200 mg/dl is diagnostic for diabetes. In the absence of unequivocal hyperglycemia, results should be confirmed by repeat testing. The classification and Diagnosis of Diabetes Diabetes Care 2021; 46: S19-S40. Current interpretive data was last revised 2022. Calcium 9.5 8.5 - 10.3 mg/dL C[facility] Phosphorus, pl 3.9 2.3 - 4.5 mg/dL [facility] Albumin 4.0 3.5 - 5.0 g/dL [facility] Blood Venous blood specimen / Unknown 01/14/2025 2:34 PM CDT 01/14/2025 8:36 PM CDT us Oziel Camp [facility] LAB BLOOD ORDERABLES Final R esult [facility]E [facility] [address] [address] Department [place] [address] * (ABNORMAL) eGFR (11/13/2024 10:36 AM ASSISTANT PROFESSOR) eGFR 36(L) >=60 mL/min/1. 73 m2 Comment: Interpretive Data Reference Interval Normal >/= 90 mL/min/1.73m2 Mildly decreased* 60 - 89 mL/min/1.73m2 Mildly to moderately decreased 45 - 59 mL/min/1.73m2 Moderately to severely decreased 30 - 44 mL/min/1.73m2 Severely decreased 15 - 29 mL/min/1.73m2 Kidney Failure < 15 mL/min/1.73m2 *Relative to young adult level Estimated glomerular filtration rate is determined by the 2020 CKD-EPI equation recommended by the National Kidney Foundation (A Unifying Approach to GFR Estimation: Recommendations of the NKF-ASK Task Force on Reassessing the Inclusion of Race in Diagnosing Kidney Disease, JASN 2020). The CKD-EPI equation should not be used for patients with unstable renal function and has not been validated in children and those over 70. Current interpretive data was last reviewed 2021. Blood 11/13/2024 10:3 6 AM ASSISTANT PROFESSOR 11/13/2024 6:48 PM ASSISTANT PROFESSOR us Robel Krueger MD LAB BLOOD ORDERABLES Final Result [facility] [address] [place] [address] * Differential, auto (11/13/2024 10:36 AM ASSISTANT PROFESSOR) Neutrophil abs 4.5 1.5 - 6.5 K/cumm Imm gran abs 0.0 0.0 - 0.1 K/cumm [facility] Lymphocyte abs 2.7 0.8 - 3.3 K/cumm [facility] Monocyte abs 0.5 0.2 - 0.8 K/cumm [facility] Eosinophil abs 0.1 0.0 - 0.5 K/cumm [facility] Basophil abs 0.0 0.0 - 0.1 K/cumm [facility] Neutrophil pct 57.0 % [facility] Comment: Interpretive Data Percent cell count reference ranges are not reported, since discordance with absolute values may lead to misinterpretation of CBC data. Current Interpretive Data was last revised on 2018. Imm gran pct 0.3 % [facility] Comment: Interpretive Data Percent cell count reference ranges are not reported, since discordance with absolute values may lead to misinterpretation of CBC data. Current Interpretive Data was last revised on 2018. Lymphocyte pct 34.4 % [facility] Comment: Interpretive Data Percent cell count reference ranges are not reported, since discordance with absolute values may lead to misinterpretation of CBC data. Current Interpretive Data was last revised on 2018. Monocyte pct 6.0 % [facility] Comment: Interpretive Data Percent cell count reference ranges are not reported, since discordance with absolute values may lead to misinterpretation of CBC data. Current Interpretive Data was last revised on 2018. Eosinophil pct 1.8 % [facility] Comment: Interpretive Data Percent cell count reference ranges are not reported, since discordance with absolute values may lead to misinterpretation of CBC data. Current Interpretive Data was last revised on 2018. Basophil pct 0.5 % [facility] Comment: Interpretive Data Percent cell count reference ranges are not reported, since discordance with absolute values may lead to misinterpretation of CBC data. Current Interpretive Data was last revised on 2018. Blood 11/13/2024 10:3 6 AM ASSISTANT PROFESSOR 11/13/2024 6:36 PM ASSISTANT PROFESSOR us Robel Krueger MD LAB BLOOD ORDERABLES Final Result [facility] [address] [place] [address] * (ABNORMAL) CBC with auto differential (11/13/2024 10:36 AM ASSISTANT PROFESSOR) WBC 7.8 3.8 - 9.9 K/cumm Hgb 11.7(L) 11.9 - 15.5 g/dL [facility] Hct 36.7 35.6 - 45.5 % [facility] Plt 204 150 - 400 K/cumm [facility] MPV 13.8(H) 9.1 - 12.3 fL [facility] RBC 3.73(L) 3.90 - 5.20 M/cumm [facility] MCV 98.4(H) 81.3 - 96.4 fL [facility] MCH 31.4 27.1 - 33.3 pg [facility] MCHC 31.9(L) 32.3 - 35.7 g/dL [facility] RDW CV 13.4 11.1 - 14.9 % [facility] RDW SD 48.3(H) 35.7 - 48.1 fL [facility] NRBC abs 0.00 0.00 - 0.01 K/cumm [facility] Blood 11/13/2024 10:3 6 AM ASSISTANT PROFESSOR 11/13/2024 6:36 PM ASSISTANT PROFESSOR Robel Krueger MD LAB BLOOD ORDERABLES Final Result Performing Organization Address [facility] de Phone Number [facility] [address] [place] [address] * (ABNORMAL) Hemoglobin A1c (11/13/2024 10:36 AM ASSISTANT PROFESSOR) Hgb A1C 9.4(H) 4.0 - 5.6 % Estimated Average Glucose 223 mg/dL [facility] Comment: The ADA recommends reporting an estimated Average Glucose (eAG) with all Hemoglobin A1c results using the equation derived from a study of 507 normal and diabetic adults. Minority populations were underrepresented and children were not included. (Diabetes Care 31:2465-3861, 2008). The eAG is not equivalent to a fasting glucose. Blood 11/13/2024 10:3 6 AM ASSISTANT PROFESSOR 11/13/2024 6:36 PM ASSISTANT PROFESSOR Robel Krueger MD LAB BLOOD ORDERABLES Final Result Performing Organization Address [facility] Co de Phone Number [facility] [address] [facility] [employer] [place], [place] [id number] * Lipid panel (11/13/2024 10:36 AM ASSISTANT PROFESSOR) Cholesterol 173 30 - 199 mg/dL Comment: Interpretive Data Ages < or = 19 years Acceptable: <170 mg/dL Borderline high: 170-199 mg/dL High: >or= 200 mg/dL Ages > or = 20 years Desirable: <200 mg/dL Borderline high: 200-239 mg/dL High: >or= 240 mg/dL Literature References: 1. Expert Panel on Integrated Guidelines for Cardiovascular Health and Risk Reduction in Children and Adolescents. Pediatrics 2011;128:S213 2. NCEP Expert Panel. Circulation 2004;110:227 Current Interpretive Data was last revised on 2018. Triglycerides 116 <=149 mg/dL [facility] Comment: Interpretive Data Ages < or = 9 years Acceptable: <75 mg/dL Borderline high: 75-99 mg/dL High: >or= 100 mg/dL Ages 10 to 20 years Acceptable: <90 mg/dL Borderline high: 90-129 mg/dL High: >or= 130 mg/dL Ages > or = 20 years Desirable: <150 mg/dL Borderline high: 150-199 mg/dL High: 200-499 mg/dL Very high: >or= 499 mg/dL Literature References: 1. Expert Panel on Integrated Guidelines for Cardiovascular Health and Risk Reduction in Children and Adolescents. Pediatrics 2011;128:S213 2. NCEP Expert Panel. Circulation 2004;110:227 Current Interpretive Data was last revised on 2018. HDL 68 >=40 mg/dL [facility] Comment: Interpretive Data Ages < or = 19 years Acceptable: >45 mg/dL Borderline low: 40-45 mg/dL Low: <40 mg/dL Ages > or = 20 years Desirable: >or= 60 mg/dL Low: <40 mg/dL Literature References: 1. Expert Panel on Integrated Guidelines for Cardiovascular Health and Risk Reduction in Children and Adolescents. Pediatrics 2011;128:S213 2. NCEP Expert Panel. Circulation 2004;110:227 Current Interpretive Data was last revised on 2018. LDL, calculated 85 <=129 mg/dL [facility] Comment: Interpretive Data Ages < or = 19 years Acceptable: <110 mg/dL Borderline high: 110-129 mg/dL High: >or= 130 mg/dL Ages > or = 20 years Optimal: <100 mg/dL Near optimal: 100-129 mg/dL Borderline high: 130-159 mg/dL High: >160 mg/dL Calculated using the Fredis LDL-C estimating equation. This equation was implemented on 2024. Prior to this date LDL-C was estimated using the Friedewald equation. Literature References: 1. Expert Panel on Integrated Guidelines for Cardiovascular Health and Risk Reduction in Children and Adolescents. Pediatrics 2011;128:S213 2. NCEP Expert Panel. Circulation 2004;110:227 3. Fredis Santiago et al. GEMINI Cardiol. 2020 February 05;5(5):540-548. doi: 10.1001/jamacardio.2020.0013 Current Interpretive Data was last revised on 2024. Non-HDL Cholesterol 105 mg/dL [facility] Comment: Interpretive Data Ages < or = 19 years Acceptable: <120 mg/dL Borderline high: 120-144 mg/dL High: >145 mg/dL Ages > or = 20 years When triglycerides are >200 mg/dL, Non-HDL cholesterol is a secondary target of therapy with treatment goals that are 30 mg/dL greater than the LDL cholesterol target. Literature References: 1. Expert Panel on Integrated Guidelines for Cardiovascular Health and Risk Reduction in Children and Adolescents. Pediatrics 2011;128:S213 2. NCEP Expert Panel. Circulation 2004;110:227 Current Interpretive Data was last revised on 2018. Chol/HDL ratio 3 [facility] Blood 11/13/2024 10:3 6 AM ASSISTANT PROFESSOR 11/13/2024 6:36 PM ASSISTANT PROFESSOR us Robel Krueger MD LAB BLOOD ORDERABLES Final Result [facility] [address] [place] [address] * (ABNORMAL) Comprehensive metabolic panel (11/13/2024 10:36 AM ASSISTANT PROFESSOR) Sodium 139 135 - 145 mmol/L Potassium, pl 4.8 3.3 - 4.9 mmol/L [facility] Chloride 104 97 - 110 mmol/L [facility] CO2 23 22 - 32 mmol/L [facility] Anion gap 12 2 - 15 mmol/L [facility] BUN 27(H) 6 - 25 mg/dL [facility] Creatinine 1.62(H) 0.60 - 1.10 mg/dL [facility] Glucose 177 70 - 199 mg/dL [facility] Comment: Interpretive Data Fasting glucose >/= 126 mg/dl is diagnostic for diabetes. Fasting is defined as no caloric intake for at least 8 hours. Fasting glucose between 100 mg/dl to 125 mg/dl is diagnostic of prediabetes. In a patient with classic symptoms of hyperglycemia or hyperglycemic crisis, a random glucose >/= 200 mg/dl is diagnostic for diabetes. In the absence of unequivocal hyperglycemia, results should be confirmed by repeat testing. The classification and Diagnosis of Diabetes Diabetes Care 202; 46: S19-S40. Current interpretive data was last revised 2022. Calcium 9.9 8.5 - 10.3 mg/dL [facility] Bilirubin, total 0.6 0.1 - 1.2 mg/dL [facility] Protein, pl 7.7 6.5 - 8.5 g/dL [facility] Albumin 4.2 3.5 - 5.0 g/dL [facility] Alk phos 159(H) 40 - 130 Units/L [facility] ALT 34 7 - 45 Units/L [facility] AST 33 10 - 45 Units/L [facility] Blood 11/13/2024 10:3 6 AM ASSISTANT PROFESSOR 11/13/2024 6:36 PM ASSISTANT PROFESSOR Robel Krueger MD LAB BLOOD ORDERABLES Final Result Performing Organization Address City/State/[facility] Co va Phone Number [facility] [address] Department [place] [address] * (ABNORMAL) Albumin Creatinine Ratio, Urine (03/07/2024 1:09 PM CDT) Albumin Ur 48.5 mg/L Comment: Interpretive Data No reference range established. Current interpretive data was last revised 2019. Creatinine Ur 87.3 mg/dL [facility] Comment: Interpretive Data No reference range established. Current interpretive data was last revised 2019. Albumin Creatinine Ratio, Ur 56(H) 1 - 29 mg/g [facility] Urine 03/07/2024 1:09 PM CDT 03/07/2024 7:01 PM CDT Chrissy Raman MD LAB URINE ORDERABLES Fin al Result [facility] [address] [place] [address] * HM DIABETES EYE EXAM (04/30/2023) Historical Provider HEALTH MAINTENANCE Final Result * MAMMOGRAPHY (01/06/2022) Anatomical Region Laterality Modality Breast Mammography Historical Provider IMG MAMMO PROCEDURES Radha l Result * Hepatitis C antibody (04/14/2020 10:05 AM CDT) Hep C Ab NON-REACTI VE NON-REACT PAYTON [facility] SIGNAL TO CUT-OFF 0.02 <1.00 [facility] Comment: HCV antibody was non-reactive. There is no laboratory evidence of HCV infection. In most cases, no further action is required. However, if recent HCV exposure is suspected, a test for HCV RNA (test code 44694) is suggested. For additional information please refer to http://education.[employer].Section 101/faq/YSU42g4 (This link is being provided for informational/ educational purposes only.) Blood specimen (specimen) 04/14/2020 10:05 AM CDT 04/14/2020 10:13 AM CDT Narrative [facility] - 04/15/2020 1:24 PM CDT PT FORGOT INS CARD SAME ON FILE FASTING:YES FASTING: YES Julienne Marte DO LAB MICROBIOLOGY - GENERAL ORD ERABLES Final Result [facility] [address] [address] * Occult blood, fecal non neoplasm screening (04/12/2017 12:00 AM CDT) Fecal globulin by immunochemistry SEE NOTE [facility] [place] Comment: FECAL GLOBIN BY IMMUNOCHEMISTRY MICRO NUMBER: [id number] TEST STATUS: FINAL SPECIMEN SOURCE: INSURE () FOBT TEST CARD SPECIMEN QUALITY: ADEQUATE RESULT: Not Detected 04/12/2017 04/27/2017 10: 43 AM CDT Narrative [facility] - 04/28/2017 8:07 AM CDT 2ND SAMPLE [id number] FASTING: UNKNOWN Resulting Agency Comment Performing Organization Information: Site ID: [place] Name: [facility] Address: [address] [address] Director: Gwyn Dykes D.O., MPH us Julienne Marte DO LAB BODY FLUIDS AND STOOLS ORD ERABLES Final Result [facility] [place] from Last 3 Months or Most Recently Relevant to Health Maintenance Insurance [facility] MEDICARE ADVANTAGE [facility] MEDICARE ADVANTAGE Care Teams Overcaster Relationship Specialty Start Date End Date Robel Krueger MD [facility] [place][note 2][address] [address] PCP - General Family Medicine 04/01/24 Reid Brown MD [address] [address] Consulting Physician Nephrology 08/28/23 Refugio Bullock MD [address] [place] [address] Referring Physician Ophthalmology 08/28/23
--- OUTSIDE RECORDS SUMMARY | 2025-01-29 02:30 | XMS_ITS | Referral Summary ---
Author Organization [facility] Medical Office Building 1 Address [address] [place] [address] Care Team Providers Care Keg Inspector Name Role Phone Reid Brown MD Unavailable [phone] Refugio Bullock MD Unavailable [phone] Robel Krueger MD Primary Care Provider [phone] Encounters Date Type Department Care Team Description 01/14/2025 2:34 PM CDT - 01/14/2025 11:59 PM CDT Hospital Encounter [address] [address] Chronic kidney disease (CKD) stage G3b/A3, moderately decreased glomerular filtration rate (GFR) between 30-44 mL/min/1.73 square meter and albuminuria creatinine ratio greater than 300 mg/g (HCC) Discharge Disposition: Discharge to home or self care 01/14/2025 2:30 PM CDT Lab [facility] Outpatient Lab at [address] [phone] Chronic kidney disease (CKD) stage G3b/A3, moderately decreased glomerular filtration rate (GFR) between 30-44 mL/min/1.73 square meter and albuminuria creatinine ratio greater than 300 mg/g (HCC) (Primary Dx); CKD (chronic kidney disease) stage 3, GFR 30-59 ml/min (HCC) 12/10/2024 Telephone [facility] [employer] [facility] [address] [place] [address] [place] Successful Phone Call (Med adherence) 11/15/2024 Orders Only [facility] Medical [facility] at [address] [phone] Robel Krueger MD 11/13/2024 10:36 AM ANNEALING FURNACE OPERATOR - 11/13/2024 11:59 PM ANNEALING FURNACE OPERATOR Hospital Encounter [address] [address] Hypertension associated with type 2 diabetes mellitus (HCC); Dyslipidemia associated with type 2 diabetes mellitus (HCC); Stage 3b chronic kidney disease (HCC) Discharge Disposition: Discharge to home or self care 11/13/2024 10:45 AM ANNEALING FURNACE OPERATOR Lab [facility] Outpatient Lab at [address] [phone] Hypertension associated with type 2 diabetes mellitus (HCC) (Primary Dx) 11/13/2024 9:45 AM ANNEALING FURNACE OPERATOR Office Visit [facility] Primary Care at [address] [phone] Robel Krueger MD Hypertension associated with type 2 diabetes mellitus (HCC) (Primary Dx); Dyslipidemia associated with type 2 diabetes mellitus (HCC); Stage 3b chronic kidney disease (HCC); 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 Assessment & Plan (11/10/2019 3:15 PM ANNEALING FURNACE OPERATOR): At the present time patient has not [...] in. Assessment & Plan (11/10/2019 3:14 PM ANNEALING FURNACE OPERATOR): Patient states she did do her Cologuard [...] day. Assessment & Plan (10/03/2020 5:50 PM ANNEALING FURNACE OPERATOR): Patient has been taking vitamin D 50,000 once a week. Will continue to monitor Assessment & Plan (06/09/2020 12:53 PM CDT): Patient's vitamin-D levels were high. Was advised to stop taking her vitamin D 50,000 once a week for now. Will continue to monitor. Assessment & Plan (11/10/2019 3:15 PM ANNEALING FURNACE OPERATOR): Patient has been taking vitamin D 20550 units once a week. Assessment & Plan (04/29/2019 12:32 PM CDT): Patient has been taking vitamin D 65564 IU use once a week. With her next blood work will also check her vitamin-D levels. Assessment & Plan (01/08/2019 3:13 PM CDT): Patient's blood work does show her vitamin-D level was very low. Was given prescription to take vitamin D 29031 units once a week. Will recheck it in few months. TRD (traction retinal detachment), left 11/11/19 19 Colonoscopy refused 12/20/2017 Assessment & Plan (10/03/2020 5:51 PM ANNEALING FURNACE OPERATOR): Patient has refused to have colonoscopy. Patient [...] same. Assessment & Plan (10/03/2020 5:52 PM ANNEALING FURNACE OPERATOR): Blood pressure has been well controlled. At [...] same. Assessment & Plan (11/10/2019 3:14 PM ANNEALING FURNACE OPERATOR): Blood pressure has been well controlled. At [...] dose. Assessment & Plan (11/15/2018 1:57 PM ANNEALING FURNACE OPERATOR): Patient's blood pressure has been well controlled. At the present time patient has been taking Tenormin 50 mg 1 daily. Patient has also been taking Hyzaar 100/12.5 mg on a daily basis. She will continue with the same dosage. Assessment & Plan (09/18/2018 10:13 AM ANNEALING FURNACE OPERATOR): Patient's blood pressure has been well controlled. At the present time she will continue with the same medications. Assessment & Plan (08/22/2018 1:59 PM ANNEALING FURNACE OPERATOR): Patient's blood pressure has been well controlled. [...] medications. Assessment & Plan (08/28/2017 6:17 PM ANNEALING FURNACE OPERATOR): Patient's blood pressure has been controlled. At the present time she has been taking atenolol 50 mg 1 daily. she has also been on high Hyzaar 100/12.5 mg daily. She will continue with the same. Proliferative diabetic retin opathy of both eyes without macular edema associated with type 2 diabetes mellitus ([facility]) 05/15/2017 Assessment & Plan (12/31/2022 11:40 PM CDT): As per her electrocardiograph technician. Assessment & Plan (05/28/2022 9:41 PM CDT): [...] (06/09/2020 12:50 PM CDT): As per her electrocardiograph technician and redness specialist. Next Assessment & Plan (11/10/2019 3:13 PM ANNEALING FURNACE OPERATOR): Patient does see electrocardiograph technician on a regular basis. States she has been using her eyedrops as prescribed. Assessment & Plan (08/22/2018 2:34 PM ANNEALING FURNACE OPERATOR): States her vision is staying about the same. She does see electrocardiograph technician on a regular basis. Has been using eyedrops. Assessment & Plan (08/28/2017 6:16 PM ANNEALING FURNACE OPERATOR): Patient is up-to-date on her eye exam. [...] to avoid all nonsteroidals. She does see bleach mixer now. Assessment & Plan (05/28/2022 9:41 PM CDT): Discussed with patient her kidney test have been progressively been getting worse. Patient has metformin was discontinued. Was advised to make the appointment to see the bleach mixer. Also advised patient to avoid all nonsteroidals. Patient's Diovan was also discontinued. Assessment & Plan (12/25/2021 11:40 AM CDT): Advised patient to avoid all nonsteroidals. Discussed with patient she also does need to have an appointment to follow-up with a bleach mixer. Assessment & Plan (06/06/2021 12:36 PM CDT): Medications were reviewed. Patient was advised to avoid all nonsteroidals. Will continue to monitor Assessment & Plan (01/21/2021 12:15 PM CDT): Medications were reviewed. Patient was advised to avoid all nonsteroidals. Also discussed with patient that she does need to be seen by bleach mixer. Patient states that the present time she wants to wait till March when she changes her insurance. Assessment & Plan (10/03/2020 5:51 PM ANNEALING FURNACE OPERATOR): Medications were reviewed. Patient was advised to [...] present time does not want to see bleach mixer. Assessment & Plan (11/10/2019 3:13 PM ANNEALING FURNACE OPERATOR): Medications were reviewed. Patient was advised to avoid all nonsteroidals. Will continue to monitor Assessment & Plan (04/29/2019 12:30 PM CDT): Patient's medications were reviewed. Avoid nephrotoxins. Will continue to monitor. Assessment & Plan (01/08/2019 3:09 PM CDT): Patient's recent lab work was discussed with her. Will continue to monitor. Patient was advised to avoid all nonsteroidals. Assessment & Plan (11/15/2018 1:56 PM ANNEALING FURNACE OPERATOR): Will continue to monitor. Patient will avoid nonsteroidals. Assessment & Plan (09/18/2018 10:13 AM ANNEALING FURNACE OPERATOR): Continue to monitor Assessment & Plan (08/22/2018 1:58 PM ANNEALING FURNACE OPERATOR): Patient not taking any nonsteroidals. Does not have any symptoms. Will continue to monitor. Assessment & Plan (12/20/2017 5:56 PM CDT): Will continue to monitor. Patient was given lab slip to have blood work in urine test in the next couple of weeks. Assessment & Plan (08/28/2017 6:16 PM ANNEALING FURNACE OPERATOR): Patient's creatinine was 1.39 this time. GFR [...] specialist. Assessment & Plan (10/03/2020 5:50 PM ANNEALING FURNACE OPERATOR): As per her eye doctor's. She has been using her eyedrops as prescribed Assessment & Plan (06/09/2020 12:50 PM CDT): As per her electrocardiograph technician in the redness specialist. Assessment & Plan [...] (05/28/2022 9:42 PM CDT): As per her electrocardiograph technician. Patient states she has been using her eyedrops as prescribed Assessment & Plan (12/25/2021 11:42 AM CDT): As per electrocardiograph technician. Patient states she has been using her eyedrops as prescribed. Assessment & Plan (06/06/2021 12:35 PM CDT): Patient has been using her eyedrops. Does see her eye doctor on a regular basis Assessment & Plan (06/09/2020 12:50 PM CDT): As per her electrocardiograph technician. Type 2 diabetes mellitus wit h hyperglycemia, [...] appointment Assessment & Plan (10/03/2020 5:50 PM ANNEALING FURNACE OPERATOR): Patient has been taking Lipitor 40 mg [...] call. Assessment & Plan (11/10/2019 3:11 PM ANNEALING FURNACE OPERATOR): Patient has been taking pravastatin 80 mg [...] dose. Assessment & Plan (11/15/2018 2:02 PM ANNEALING FURNACE OPERATOR): Patient was encouraged to continue with her diet and exercise. At the present time patient has been taking pravastatin 80 mg on a daily basis. She will continue with the same dose. Assessment & Plan (09/18/2018 10:15 AM ANNEALING FURNACE OPERATOR): Diet and exercise was discussed with patient. At the present time she has been taking pravastatin 80 mg a day and has been able to tolerate that. Assessment & Plan (08/22/2018 2:00 PM ANNEALING FURNACE OPERATOR): Advised to continue with diet and exercise. [...] CMP. Assessment & Plan (08/28/2017 6:14 PM ANNEALING FURNACE OPERATOR): Labs were discussed with patient. Her LDL [...] does not feel she needs to see steel pourer at this time. Heart murmur 01/01/2013 Overview (01/10/2017): Heart murmur Assessment & Plan (08/22/2018 1:59 PM ANNEALING FURNACE OPERATOR): Patient will be scheduled to have 2D [...] mammogram. Assessment & Plan (11/10/2019 3:16 PM ANNEALING FURNACE OPERATOR): Patient states she will make her own appointment for the mammogram. Refused influenza vaccine 11/10/2019 Assessment & Plan (11/10/2019 3:16 PM ANNEALING FURNACE OPERATOR): Patient was offered flu shot and she declined. Next BMI 26.0-26.9,adult 04/29/2019 01/22/20 21 Assessment & Plan (06/09/2020 12:53 PM CDT): Diet exercise and weight loss was encouraged. Assessment & Plan (11/10/2019 3:15 PM ANNEALING FURNACE OPERATOR): Patient was counseled on diet exercise. Assessment & Plan (04/29/2019 12:35 PM CDT): Patient was counseled on diet exercise and weight loss. Pre-op examination 11/15/2018 9 Assessment & Plan (11/15/2018 1:58 PM ANNEALING FURNACE OPERATOR): Patient is scheduled to have surgery on her left eye next week. Patient's EKG was normal. Patient is cleared for surgery. Patient was advised to hold her diabetes medicine morning of the surgery. However she can take Tenormin 50 mg with a sip of water in the morning. Will make sure patient's labs are okay. Breast cancer screening 05/15/201708/09 Assessment & Plan (05/15/2017 11:45 AM CDT): Patient will make appointment for the mammogram Type 2 diabetes mellitus wit h hyperlipidemia ([facility]) 02/04/2013 08/28/2023 Overview (01/11/2017): DMII WO CMP [...] metformin. Assessment & Plan (10/03/2020 5:50 PM ANNEALING FURNACE OPERATOR): Patient has not been checking blood sugars [...] months. Assessment & Plan (11/10/2019 3:12 PM ANNEALING FURNACE OPERATOR): Patient states she has not been checking [...] exam. Assessment & Plan (11/15/2018 1:56 PM ANNEALING FURNACE OPERATOR): Patient states she has not been checking [...] dosage. Assessment & Plan (09/18/2018 10:14 AM ANNEALING FURNACE OPERATOR): Patient states she has not been able [...] medications. Assessment & Plan (08/22/2018 2:35 PM ANNEALING FURNACE OPERATOR): Patient states she has been doing much [...] metformin. Assessment & Plan (08/28/2017 6:15 PM ANNEALING FURNACE OPERATOR): Patient was encouraged to check her blood [...] have fasting blood work few days before Immunizations Immunization Administration Dates Next Due DTP [...] 05/24/2022 Pneumococcal Polysaccharide PPV23 02/04/2013 Tdap 12/20/2017 Social History Tobacco Use Types Packs/Day Years [...] on file Legal Sex Female 2:48 AM ANNEALING FURNACE OPERATOR Gender Identity Not on file Sexual Orientation Not on file Occupation Industry Job Start Date Job End Date homemaker Not on file Not on file Not on file Last Filed Vital Signs Vital Sign Reading Time Taken Comments Blood Pressure 136/80 11/13/2024 9:59 AM ANNEALING FURNACE OPERATOR Pulse 76 11/13/2024 9:59 AM ANNEALING FURNACE OPERATOR Temperature 36 C (96.8 F) 11/13/2024 9:59 AM ANNEALING FURNACE OPERATOR Respiratory Rate 16 11/13/2024 9:59 AM ANNEALING FURNACE OPERATOR Oxygen Saturation 98% 11/13/2024 9:59 AM ANNEALING FURNACE OPERATOR Inhaled Oxygen Concentration - - Weight 71.2 kg (157 lb) 11/13/2024 9:59 AM ANNEALING FURNACE OPERATOR Height 162.6 cm (5' 4 ) 11/13/2024 9:59 AM ANNEALING FURNACE OPERATOR Body Mass Index 26.95 11/13/2024 9:59 AM ANNEALING FURNACE OPERATOR Plan of Treatment Not on file Procedures Procedure Name Priority Date/Time Associated Diagnosis [...] mg/g (HCC) EGFR Routine 11/13/2024 10:36 AM ANNEALING FURNACE OPERATOR Hypertension associated with type 2 diabetes mellitus (HCC) Stage 3b chronic kidney disease (HCC) DIFFERENTIAL AUTO Routine 11/13/2024 10: 36 AM ANNEALING FURNACE OPERATOR Hypertension associated with type 2 diabetes mellitus (HCC) CBC WITH AUTO DIFFERENTIAL Routine 11/13/2024 10:36 AM ANNEALING FURNACE OPERATOR Hypertension associated with type 2 diabetes mellitus (HCC) COMPREHENSIVE METABOLIC PANEL Routine 11/13/2024 10:36 AM ANNEALING FURNACE OPERATOR Hypertension associated with type 2 diabetes mellitus (HCC) Stage 3b chronic kidney disease (HCC) LIPID PANEL Routine 11/13/2024 10:36 AM ANNEALING FURNACE OPERATOR Dyslipidemia associated with type 2 diabetes mellitus (HCC) HEMOGLOBIN A1C Routine 11/13/2024 10:36 AM ANNEALING FURNACE OPERATOR Hypertension associated with type 2 diabetes mellitus [...] of Race in Diagnosing Kidney Disease, JASN 202). The CKD-EPI equation should not be used for patients with unstable renal function and has not been validated in children and those over 70. Current interpretive data was last reviewed 2021. Blood 01/14/2025 2:34 PM CDT 01/14/2025 8:36 PM CDT us Oziel Camp DISABILITY ATTORNEY LAB BLOOD ORDERABLES Final R esult [facility] [address] [place] [address] * Differential, auto (01/14/2025 2:34 PM CDT) Pathologist [facility] Neutrophil abs 2.84 1.50 - 6.50 K/cumm Imm gran abs 0.01 0.00 - 0.10 K/cumm [facility] Lymphocyte abs 3.11 0.80 - 3.30 K/cumm [facility] Monocyte abs 0.48 0.20 - 0.80 K/cumm [facility] Eosinophil abs 0.12 0.00 - 0.50 K/cumm [facility] Basophil abs 0.05 0.00 - 0.10 K/cumm [facility] Neutrophil pct 42.9 % [facility] Comment: Interpretive Data Percent cell count reference ranges are not reported, since discordance with absolute values may lead to misinterpretation of CBC data. Current Interpretive Data was last revised on 2018. Imm gran pct 0.2 % [facility] Comment: Interpretive Data Percent cell count reference ranges are not reported, since discordance with absolute values may lead to misinterpretation of CBC data. Current Interpretive Data was last revised on 2018. Lymphocyte pct 47.0 % [facility] Comment: Interpretive Data Percent cell count reference ranges are not reported, since discordance with absolute values may lead to misinterpretation of CBC data. Current Interpretive Data was last revised on 2018. Monocyte pct 7.3 % [facility] Comment: Interpretive Data Percent cell count reference ranges are not reported, since discordance with absolute values may lead to misinterpretation of CBC data. Current Interpretive Data was last revised on 2018. Eosinophil pct 1.8 % [facility] Comment: Interpretive Data Percent cell count reference ranges are not reported, since discordance with absolute values may lead to misinterpretation of CBC data. Current Interpretive Data was last revised on 2018. Basophil pct 0.8 % [facility] Comment: Interpretive Data Percent cell count reference ranges are not reported, since discordance with absolute values may lead to misinterpretation of CBC data. Current Interpretive Data was last revised on 2018. Blood 01/14/2025 2:34 PM CDT 01/14/2025 8:36 PM CDT us Oziel Camp DISABILITY ATTORNEY LAB BLOOD ORDERABLES Final R esult [facility] [address] Department [place] [address] * (ABNORMAL) CBC with auto differential (01/14/2025 2:34 PM CDT) WBC 6.61 3.80 - 9.90 K/cumm Hgb 11.5(L) 11.9 - 15.5 g/dL [facility] Hct 36.7 35.6 - 45.5 % [facility] Plt 195 150 - 400 K/cumm [facility] Comment:No clot detected in sample. MPV 13.8(H) 9.1 - 12.3 fL [facility] RBC 3.69(L) 3.90 - 5.20 M/cumm [facility] MCV 99.5(H) 81.3 - 96.4 fL [facility] MCH 31.2 27.1 - 33.3 pg [facility] MCHC 31.3(L) 32.3 - 35.7 g/dL [facility] RDW CV 13.8 11.1 - 14.9 % [facility] RDW SD 50.5(H) 35.7 - 48.1 fL [facility] NRBC abs 0.00 0.00 - 0.01 K/cumm [facility] Blood 01/14/2025 2:34 PM CDT 01/14/2025 8:36 PM CDT us Oziel Camp DISABILITY ATTORNEY LAB BLOOD ORDERABLES Final R esult Performing Organization Address City/[facility]/ZIP Co de Phone Number CLEMENTE PHILLIPS [address] [address] * (ABNORMAL) PTH (01/14/2025 2:34 PM CDT) PTH 134(H) 15 - 65 pg/mL Blood Venous blood specimen / Unknown 01/14/2025 2:34 PM CDT 01/14/2025 8:36 PM CDT Narrative [facility] - 01/14/2025 10:08 PM CDT Fax results to [phone] OZIEL CAMP us Oziel Camp DISABILITY ATTORNEY LAB BLOOD ORDERABLES Final R esult Performing Organization Address City/[facility]/ZIP Co de Phone Number CLEMENTE PHILLIPS [address] Department [employer] [address] * (ABNORMAL) Renal function panel (01/14/2025 2:34 PM CDT) Sodium 140 135 - 145 mmol/L Potassium, pl 4.6 3.3 - 4.9 mmol/L [facility] Chloride 105 97 - 110 mmol/L [facility] CO2 25 22 - 32 mmol/L [facility] Anion gap 10 2 - 15 mmol/L [facility] BUN 28(H) 6 - 25 mg/dL [facility] Creatinine 1.73(H) 0.60 - 1.10 mg/dL [facility] Glucose 208(H) 70 - 199 mg/dL [facility] Comment: Interpretive Data Fasting glucose >/= 126 [...] 2022. Calcium 9.5 8.5 - 10.3 mg/dL [facility] Phosphorus, pl 3.9 2.3 - 4.5 mg/dL [facility] Albumin 4.0 3.5 - 5.0 g/dL [facility] Blood Venous blood specimen / Unknown 01/14/2025 2:34 PM CDT 01/14/2025 8:36 PM CDT us Oziel Camp NP LAB BLOOD ORDERABLES Final R esult [facility] [address] Department [place] [address] * (ABNORMAL) eGFR (11/13/2024 10:36 AM ANNEALING FURNACE OPERATOR) eGFR 36(L) >=60 mL/min/1. 73 m2 Comment: [...] reviewed 2021. Blood 11/13/2024 10:3 6 AM ANNEALING FURNACE OPERATOR 11/13/2024 6:48 PM ANNEALING FURNACE OPERATOR us Robel Krueger MD LAB BLOOD ORDERABLES Final Result Performing Organization Address City/State/ZIP Co sc Phone Number [facility] [address] Department [place] [address] * Differential, auto (11/13/2024 10:36 AM ANNEALING FURNACE OPERATOR) Neutrophil abs 4.5 1.5 - 6.5 K/cumm Imm gran abs 0.0 0.0 - 0.1 K/cumm [facility] Lymphocyte abs 2.7 0.8 - 3.3 K/cumm [facility] Monocyte abs 0.5 0.2 - 0.8 K/cumm [facility] Eosinophil abs 0.1 0.0 - 0.5 K/cumm [facility] Basophil abs 0.0 0.0 - 0.1 K/cumm [facility] Neutrophil pct 57.0 % [facility] Comment: Interpretive Data Percent cell count reference ranges are not reported, since discordance with absolute values may lead to misinterpretation of CBC data. Current Interpretive Data was last revised on 2018. Imm gran pct 0.3 % [facility] Comment: Interpretive Data Percent cell count reference ranges are not reported, since discordance with absolute values may lead to misinterpretation of CBC data. Current Interpretive Data was last revised on 2018. Lymphocyte pct 34.4 % [facility] Comment: Interpretive Data Percent cell count reference ranges are not reported, since discordance with absolute values may lead to misinterpretation of CBC data. Current Interpretive Data was last revised on 2018. Monocyte pct 6.0 % [facility] Comment: Interpretive Data Percent cell count reference ranges are not reported, since discordance with absolute values may lead to misinterpretation of CBC data. Current Interpretive Data was last revised on 2018. Eosinophil pct 1.8 % [facility] Comment: Interpretive Data Percent cell count reference ranges are not reported, since discordance with absolute values may lead to misinterpretation of CBC data. Current Interpretive Data was last revised on 2018. Basophil pct 0.5 % [facility] Comment: Interpretive Data Percent cell count reference ranges are not reported, since discordance with absolute values may lead to misinterpretation of CBC data. Current Interpretive Data was last revised on 2018. Blood 11/13/2024 10:3 6 AM ANNEALING FURNACE OPERATOR 11/13/2024 6:36 PM ANNEALING FURNACE OPERATOR Robel Krueger MD LAB BLOOD ORDERABLES Final Result [facility] [address] Department [place] [address] * (ABNORMAL) CBC with auto differential (11/13/2024 10:36 AM ANNEALING FURNACE OPERATOR) WBC 7.8 3.8 - 9.9 K/cumm Hgb 11.7(L) 11.9 - 15.5 g/dL [facility] Hct 36.7 35.6 - 45.5 % [facility] Plt 204 150 - 400 K/cumm [facility] MPV 13.8(H) 9.1 - 12.3 fL [facility] RBC 3.73(L) 3.90 - 5.20 M/cumm [facility] MCV 98.4(H) 81.3 - 96.4 fL [facility] MCH 31.4 27.1 - 33.3 pg [facility] MCHC 31.9(L) 32.3 - 35.7 g/dL [facility] RDW CV 13.4 11.1 - 14.9 % [facility] RDW SD 48.3(H) 35.7 - 48.1 fL [facility] NRBC abs 0.00 0.00 - 0.01 K/cumm [facility] Blood 11/13/2024 10:3 6 AM ANNEALING FURNACE OPERATOR 11/13/2024 6:36 PM ANNEALING FURNACE OPERATOR Robel Krueger MD LAB BLOOD ORDERABLES Final Result Performing Organization Address [facility] Co de Phone Number CLEMENT[facility] [address] Department [place] [address] * (ABNORMAL) Hemoglobin A1c (11/13/2024 10:36 AM ANNEALING FURNACE OPERATOR) Hgb A1C 9.4(H) 4.0 - 5.6 % Estimated Average Glucose 223 mg/dL CLEMENTE PHILLIPS Comment: The ADA recommends reporting an estimated Average Glucose (eAG) with all Hemoglobin A1c results using the equation derived from a study of 507 normal and diabetic adults. Minority populations were underrepresented and children were not included. (Diabetes Care 31:8210-9944, 2008). The eAG is not equivalent to a fasting glucose. Blood 11/13/2024 10:3 6 AM ANNEALING FURNACE OPERATOR 11/13/2024 6:36 PM ANNEALING FURNACE OPERATOR Robel Krueger MD LAB BLOOD ORDERABLES Final Result Performing Organization Address [facility] [facility] Phone Number SUERACHEL [address] [place] [address] * Lipid panel (11/13/2024 10:36 AM ANNEALING FURNACE OPERATOR) Cholesterol 173 30 - 199 mg/dL Comment: [...] on 2018. Triglycerides 116 <=149 mg/dL CLEMENTE PHILLIPS Comment: Interpretive Data Ages < or = [...] on 2018. HDL 68 >=40 mg/dL CLEMENTE PHILLIPS Comment: Interpretive Data Ages < or = [...] 2018. LDL, calculated 85 <=129 mg/dL CLEMENTE PHILLIPS Comment: Interpretive Data Ages < or = [...] NCEP Expert Panel. Circulation 2004;110:227 3. Fredis Muse al. GEMINI Cardiol. 2020 February 05;5(5):540-548. doi: 10.1001/jamacardio.2020.0013 Current Interpretive Data was last revised on 2024. Non-HDL Cholesterol 105 mg/dL CLEMENTE PHILLIPS Comment: Interpretive Data Ages < or = [...] CERNER CH Blood 11/13/2024 10:3 6 AM ANNEALING FURNACE OPERATOR 11/13/2024 6:36 PM ANNEALING FURNACE OPERATOR us Robel Krueger MD LAB BLOOD ORDERABLES Final Result CLEMENTE [address] Department [place] [address] * (ABNORMAL) Comprehensive metabolic panel (11/13/2024 10:36 AM ANNEALING FURNACE OPERATOR) Sodium 139 135 - 145 mmol/L Potassium, pl 4.8 3.3 - 4.9 mmol/L [facility] Chloride 104 97 - 110 mmol/L [facility] CO2 23 22 - 32 mmol/L [facility] Anion gap 12 2 - 15 mmol/L [facility] BUN 27(H) 6 - 25 mg/dL [facility] Creatinine 1.62(H) 0.60 - 1.10 mg/dL [facility] Glucose 177 70 - 199 mg/dL [facility] Comment: Interpretive Data Fasting glucose >/= 126 [...] 2022. Calcium 9.9 8.5 - 10.3 mg/dL C[facility] CH Bilirubin, total 0.6 0.1 - 1.2 mg/dL [facility] Protein, pl 7.7 6.5 - 8.5 g/dL [facility] Albumin 4.2 3.5 - 5.0 g/dL [facility] Alk phos 159(H) 40 - 130 Units/L [facility] ALT 34 7 - 45 Units/L [facility] AST 33 10 - 45 Units/L [facility] Blood 11/13/2024 10:3 6 AM ANNEALING FURNACE OPERATOR 11/13/2024 6:36 PM ANNEALING FURNACE OPERATOR Result [facility] Robel Krueger MD LAB BLOOD ORDERABLES Final Result Performing Organization Address [facility] Co de Phone Number [facility] [address] Department [place] [address] * (ABNORMAL) Albumin Creatinine Ratio, Urine (03/07/2024 1:09 PM CDT) Albumin Ur 48.5 mg/L Comment: Interpretive Data No reference range established. Current interpretive data was last revised 2019. Creatinine Ur 87.3 mg/dL [facility] Comment: Interpretive Data No reference range established. Current interpretive data was last revised 2019. Albumin Creatinine Ratio, Ur 56(H) 1 - 29 mg/g [facility] Urine 03/07/2024 1:09 PM CDT 03/07/2024 7:01 PM CDT Result [facility] Chrissy Raman MD LAB URINE ORDERABLES Fin al Result Performing Organization Address [facility] Co de Phone Number CLEMENTE PHILLIPS [address] Department [place] [address] * HM DIABETES EYE EXAM (04/30/2023) Historical Provider HEALTH MAINTENANCE Final Result * MAMMOGRAPHY (01/06/2022) Anatomical Region Laterality Modality Breast Mammography Result [facility] Historical Provider IMG MAMMO PROCEDURES Radha l [...] a test for HCV RNA (test code 41727) is suggested. For additional information please refer to http://education.Netflix/faq/QSW82f4 (This link is being provided for informational/ educational purposes only.) Blood specimen (specimen) 04/14/2020 10:05 AM CDT 04/14/2020 10:13 AM CDT Narrative [facility] - 04/15/2020 1:24 PM CDT PT FORGOT INS CARD SAME ON FILE FASTING:YES FASTING: YES [facility] LAB MICROBIOLOGY - GENERAL ORD ERABLES Final Result Performing Organization Address [facility] de Phone Number KOLBY [facility] [address] [place] [address] * Occult blood, fecal non neoplasm screening (04/12/2017 12:00 AM CDT) Fecal globulin by immunochemistry SEE NOTE KOLBY LUI Comment: FECAL GLOBIN BY IMMUNOCHEMISTRY MICRO NUMBER: [id number] TEST STATUS: FINAL SPECIMEN SOURCE: INSURE (TM) FOBT TEST CARD SPECIMEN QUALITY: ADEQUATE RESULT: Not Detected 04/12/2017 04/27/2017 10: 43 AM CDT Narrative [facility] - 04/28/2017 8:07 AM CDT 2ND SAMPLE [id number] FASTING: UNKNOWN Resulting Agency Comment Performing Organization Information: Site ID: [place] Name: [facility] Address: [address] [place] [address] Director: Gwyn Dykes D.O., MPH Julienne Marte DO LAB BODY FLUIDS AND STOOLS ORD ERABLES Final Result Performing Organization Address [facility] de Phone Number KOLBY [facility] MURRAY HU Spann from Last 3 Months or Most Recently Relevant to Health Maintenance Insurance [facility] MED[facility] ADVANTAGE [facility] ADVANTAGE Care Teams Keg Inspector Relationship Specialty Start Date End Date Robel Krueger MD [address] [address] PCP - General Family Medicine 04/01/24 Reid Brown MD [address] [address] Consulting Physician Nephrology 08/28/23 Refugio Bullock MD [address] [place] [address] Referring Physician Ophthalmology 08/28/23
--- OUTSIDE RECORDS SUMMARY | 2025-01-29 02:30 | XMS_ITS | Clinical Summary ---
Author Organization [facility] Address [address] [place] [address] Care Team Providers Care Remote Computer Terminal Operator Name Role Phone Julienne Marte DO Primary Care Provider [phone] Source Comments [facility],non-owned Affiliates and Associated Physician Practices is amultiple site organization consisting of ambulatory clinics and hospital sitesin [place], [place], [place] and [place]. This disclosure is being madepursuant to the Care Everywhere program and may not contain all information available regarding this patient. Last updated 18.[facility] Allergies No known active allergies Medications * Be aware that medications may not be up to date on this document. Alwaysverify current medications with the patient. metFORMIN ER 24hr (GLUCOPHAGE XR) 500 MG tablet Take 1 tablet by mouth 2 times daily 08/26/2018 Active losartan-hydroC HLOROthiazide (HYZAAR) 100-12.5 MG tablet Take 1 tablet by mouth once daily 10/21/2018 Active atenolol (TENORMIN) 50 MG tablet Take 1 tablet by mouth once daily 10/22/2018 Active glimepiride (AMARYL) 2 MG tablet Take 2 tablets by mouth 2 times daily 07/29/2018 Active pravastatin (PRAVACHOL) 80 MG tablet Take 1 tablet by mouth once daily 10/21/2018 Active cyanocobalamin (VITAMIN B-12) 100 MCG tablet Take 2,500 mcg by mouth once daily 10/21/2014 Active SIMBRINZA 1-0.2 % ophthalmic suspension Instill 1 drop into both eyes 2 times daily 10/24/2018 Active Phenylephrine-A cetaminophen (TYLENOL SINUS+HEADACHE) 5-325 MG Take 1 tablet by mouth as needed 01/01/2013 Active timolol maleate (TIMOPTIC) 0.5 % ophthalmic solution Instill 1 drop into right eye 2 times daily 10/21/2018 Active prednisoLONE acetate (PREDNISOLONE ACETATE P-F) 1 % ophthalmic suspension Instill 1 drop into left eye 3 times daily Active prednisoLONE acetate (PRED FORTE) 1 % ophthalmic suspension Instill 1 drop into left eye 3 times daily 1 bottles 12/04/2018 Active Active Problems Problem Noted Date Diagnosed Date TRD (traction retinal detachment), left 11/11/19 19 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, associated with type 2 diabetes mellitus 11/11/2018 Social History Tobacco Use Types Packs/Day Years Used Date Smoking Tobacco: Never Smokeless Tobacco: Never Alcohol Use Standard Drinks/Week Comments No 0 (1 standard drink = 0.6 oz pur e alcohol) Comments No Sex and Gender Information Value Date Recorded Sex Assigned at Not on file Legal Sex Female 8:52 AM STENO TYPIST Gender Identity Not on file Sexual Orientation Not on file Last Filed Vital Signs Vital Sign Reading Time Taken Comments Blood Pressure 149/72 11/19/2018 1:30 PM STENO TYPIST Pulse 87 11/19/2018 1:20 PM STENO TYPIST Temperature 37 C (98.6 F) 11/19/2018 1:20 PM STENO TYPIST Respiratory Rate 12 11/19/2018 1:20 PM STENO TYPIST Oxygen Saturation 99% 11/19/2018 1:20 PM STENO TYPIST Inhaled Oxygen Concentration 21% 11/19/2018 9 :13 AM STENO TYPIST Weight 65.3 kg (144 lb) 11/19/2018 9:13 AM STENO TYPIST Height 157.5 cm (5' 2 ) 11/19/2018 9:13 AM STENO TYPIST Body Mass Index 26.34 11/19/2018 9:13 AM STENO TYPIST Plan of Treatment Health Maintenance Due Date Last Done Comments COLOGUARD (AGES 45-75) - COLON CA SCREENING 1962 COLON MONITORING 1962 COLONOSCOPY - COLON CA SCREENING 1962 CT COLONOGRAPHY - COLON CA SCREENING 1962 Colorectal Cancer Screening 1962 FIT - COLON CA SCREENING 1962 FLEX SIG - COLON CA SCREENING 1962 MAMMOGRAM 1962 HIV SCREENING 1977 HEPATITIS C SCREENING 03/29/1980 DIABETES-SERUM CREATININE 1980 DTAP/TDAP/TD VACCINES (1 - Tdap) 1981 PNEUMOCOCCAL VACCINE 50+ (1 of 1 - PCV) 2012 ZOSTER VACCINE (1 of 2) 2012 DIABETES-FOOT EXAM WITH MONOFILAMENT 11/11/2018 DIABETES-HGB A1C 05/14/2019 11/14/2018 Respiratory Syncytial Virus (RSV) Vaccine Pt: or over 60 yrs (1 - Risk 60-74 years 1-dose series) 2022 COVID-19 VACCINE (1 - 2023- season) 2024 DEPRESSION SCREENING 10/08/2024 DIABETES - URINE PROTEIN SCREENING 10/08/2024 INFLUENZA VACCINE (Season Ended) 2025 07/16/2018, 08/28/2017, 09/21/2016, Additional history exists HEPATITIS B VACCINE Aged Out No longe r eligible based on patient's age to complete this topic HIB VACCINE Aged Out No longer eligi ble based on patient's age to complete this topic HPV VACCINE Aged Out No longer eligi ble based on patient's age to complete this topic MENINGOCOCCAL (Group B) VACCINE SHARED DECISION-MAKING Aged Out No longer eligible based on patient's age to complete this topic MENINGOCOCCAL GROUPS A/C/Y/W VACCINE Aged Out No longer eligible based on patient's age to complete this topic Insurance [facility] Advance Directives * Full Code (Latest Code Status on File) Date Activated Date Inactivated Comments 11/19/2018 1:01 PM 11/19/2018 3:31 PM Care Teams Remote Computer Terminal Operator Relationship Specialty Start Date End Date Julienne Marte DO PCP - General 11/08/18
[2025-01-29 12:18] VITALS: BP 163/80; PULSE 89; RESP 18; TEMP 35.8; O2SAT 100
[2025-01-29] MEDS: LACTATED RINGERS 1,000 ML 150 ML IV CONT (12:25)
[2025-01-29 12:34] LABS: Glucose Point of Care 87 mg/dl (65-105)
--- NOTE | 2025-01-29 13:03 | WPDANESEPPF ---
Anes - Initial Pre Proc Eval Procedure: Operation Date: 01/29/25 13:00 Proposed Procedures p Screening Colonoscopy - Alexander Alanis MD Date/Time: 01/29/25 13:03 Surgeon: Alexander Alanis MD Pre Op Diagnosis: Screening Patient Data Age: 64 Gender: F Height: 1.57 m Weight: 68.1 kg Last Vital Signs Temp 96.4 F L 01/29/25 12:18 Pulse 89 01/29/25 12:18 Resp 18 01/29/25 12:18 BP 163/80 H 01/29/25 12:18 Pulse Ox 100 01/29/25 12:18 O2 Del Method Room Air 01/29/25 12:18 Allergies Allergy/AdvReac Type Severity Reaction Status Date / Time No Known Allergies Allergy Verified 01/29/25 12:13 Home Medications ?Medication ?Instructions ?Recorded ?Confirmed ?Type atenolol 50 mg tablet 50 mg PO DAILY 01/20/25 01/29/25 History atorvastatin 40 mg tablet 40 mg PO QPM 01/20/25 01/29/25 History dapagliflozin propanediol 5 mg 5 mg PO DAILY 01/20/25 01/29/25 History tablet dulaglutide 4.5 mg/0.5 mL 4.5 mg subcut WEEKLY 01/20/25 01/29/25 History subcutaneous pen injector (Trulicity) glimepiride 4 mg tablet 4 mg PO BID 01/20/25 01/29/25 History linagliptin 5 mg tablet (Tradjenta) 5 mg PO DAILY 01/20/25 01/29/25 History losartan 50 mg tablet 50 mg PO DAILY 01/20/25 01/29/25 History Laboratory Tests 01/29/25 12:28 POC Capillary Glucose 87 mg/dl (65-105) Patient hx anesthesia problems: none Family hx anesthesia problems: none Results Review: All pre-operative results and documents have been reviewed as part of the pre-operative evaluation. [facility] Social History Social History Living arrangements: with family Spiritual care concerns: No Anes - Eval Final PreProcedure Day of Procedure 01/29/25 13:03 Patient weight: normal Heart: regular rate and rhythm Lungs: clear to auscultation Airway: Mallampati scale class II Neurological: alert and oriented Last oral intake: >/= 8 hours ASA classification: III Emergent: no Anesthetic plan: proceed Anesthesia type and monitoring: general GIVS and standard monitoring Results Review: All pre-operative results and documents have been reviewed as part of the pre-operative evaluation. Informed Consent: The patient's anesthetic plan and its attendant risks and benefits were discussed with the patient/family/POA. Questions were solicited and answers provided to the satisfaction of the patient/family/POA.
--- NOTE | 2025-01-29 13:48 | PM.IMHP ---
H&P: HPI History of Present Illness Date/Time: 01/29/25 13:48 Chief Complaint: Screening colonoscopy Narrative: This is the patient's first colonoscopy. There are no GI symptoms and there is no family history of colorectal cancer. Review of Systems Review of Systems: All systems reviewed & are unremarkable except as noted in HPI and below PMFSH Social History Social History Living arrangements: with family Spiritual care concerns: No Meds Home Medications and Allergies Home Medications ?Medication ?Instructions ?Recorded ?Confirmed ?Type atenolol 50 mg tablet 50 mg PO DAILY 01/20/25 01/29/25 History atorvastatin 40 mg tablet 40 mg PO QPM 01/20/25 01/29/25 History dapagliflozin propanediol 5 mg 5 mg PO DAILY 01/20/25 01/29/25 History tablet dulaglutide 4.5 mg/0.5 mL 4.5 mg subcut WEEKLY 01/20/25 01/29/25 History subcutaneous pen injector (Trulicity) glimepiride 4 mg tablet 4 mg PO BID 01/20/25 01/29/25 History linagliptin 5 mg tablet (Tradjenta) 5 mg PO DAILY 01/20/25 01/29/25 History losartan 50 mg tablet 50 mg PO DAILY 01/20/25 01/29/25 History Allergies Allergy/AdvReac Type Severity Reaction Status Date / Time No Known Allergies Allergy Verified 01/29/25 12:13 Vital Signs Vital Signs - 24 hr 01/29/25 12:18 Temperature 96.4 F L Pulse Rate 89 Respiratory Rate 18 Blood Pressure 163/80 H Pulse Oximetry 100 Oxygen Delivery Room Air Exam Const: General: cooperative and healthy appearing Resp: Effort & Inspection: normal respiratory effort and able to speak in complete sentences Auscultation: clear to auscultation bilaterally Cardio: Rate: regular rate Rhythm: regular rhythm GI: Inspection: normal to inspection GI Palp: No No hepatosplenomegaly present Auscultation: normal bowel sounds Rectal Exam: deferred Skin: General skin exam: normal color Psych: Appearance: grossly normal Mental Status: mental status grossly normal Assessment and Plan Assessment and plan (1) Encounter for screening colonoscopy: Code(s): Z12.11 - Encounter for screening for malignant neoplasm of colon Status: Acute Assessment and Plan: The patient is deemed a good candidate for the procedure. Consent signed. Will proceed.
[2025-01-29 14:22] VITALS: BP 96/58; PULSE 92; RESP 20; O2SAT 100
[2025-01-29 14:32] VITALS: BP 129/74; PULSE 87; RESP 20; O2SAT 100
[2025-01-29 14:42] VITALS: BP 150/76; PULSE 82; RESP 21; O2SAT 100
== END 2025-01-29 15:00 | disposition home or self-care (01) ==
PROVIDERS: PCP Family Medicine; Referring Provider Family Medicine; Visit Provider Internal Medicine Gastroenterology
PROC: 0DJD8ZZ Inspection of Lower Intestinal Tract, Via Natural or Artificial Opening Endoscopic (ICD-10-PCS; CPT 45378; principal; 2025-01-29 13:00)
DX: Z12.11 Encounter for screening for malignant neoplasm of colon (principal); D12.4 Benign neoplasm of descending colon; K63.5 Polyp of colon; K64.8 Other hemorrhoids; K57.30 Diverticulosis of large intestine without perforation or abscess without bleeding; Z79.85 Long-term (current) use of injectable non-insulin antidiabetic drugs; Z79.84 Long term (current) use of oral hypoglycemic drugs
CPT/HCPCS: 45385; 82948; 88305; J2003; J2704; J7120